=== PATIENT | female | born 1965 | race African-American/Black ===

== ENCOUNTER 2016-11-10 12:03 | Emergency (ER) | payer OTHER ==
[2016-11-10 12:11] VITALS: BP 158/92; PULSE 64; TEMP 98; BMI 34.0
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
[2016-11-10] MEDS ORDERED: KETOROLAC TROMETHAMINE 60 MG/2 ML VIAL IM ONE (12:37)
[2016-11-10] MEDS ORDERED: KETOROLAC TROMETHAMINE 60 MG/2 ML VIAL ONE (12:40)
== END 2016-11-10 13:48 | disposition home or self-care (01) ==
LOC: JERFT 12:03
PROC: 3E0233Z Introduction of Anti-inflammatory into Muscle, Percutaneous Approach (ICD-10-PCS; principal; 2016-11-10)
DX: S06.0X9A Concussion with loss of consciousness of unspecified duration, initial encounter (principal); M54.5 Low back pain; F17.210 Nicotine dependence, cigarettes, uncomplicated; E11.9 Type 2 diabetes mellitus without complications; I10 Essential (primary) hypertension; E78.00 Pure hypercholesterolemia, unspecified; K21.9 Gastro-esophageal reflux disease without esophagitis; I48.91 Unspecified atrial fibrillation
CPT/HCPCS: 70450-TC; 72131-TC; 99281-25

== ENCOUNTER 2018-03-19 04:00 | Emergency (ER) | payer OTHER ==
--- NOTE | 2018-03-19 04:53 | PDOC ---
History of Present Illness - General History Source: Patient Exam Limitations: No Limitations - History of Present Illness Initial Comments: 03/19/18 05:03 52 year old female with past medical history of diabetes, GERD, diverticulitis, colon resection presents to ED today complaining of right knee pain that has been worsening over two weeks. She states has had chronic bilateral knee pain but this pain is worse than before. She denies injury to the knee. She is able to bear weight with a cane. <Ailin Duron - Last Filed: 03/19/18 07:37> <Shimon Mcgill - Last Filed: 03/19/18 09:13> - General Stated Complaint: RIGHT KNEE PAIN Time Seen by Provider: 03/19/18 04:53 Past History - Past Medical History Anemia: Yes (HAS HAD BLOOD TRANSFUSION AFTER COLON RESECTION 2011) Asthma: No Cancer: No Cardiac Disorders: Yes (ATRIAL FIBRILLATION 2013) CVA: No COPD: No CHF: No Dementia: No Diabetes: Yes (NIDDM 2014) GI Disorders: Yes (GERD,DIVERTICULITIS-RESECTION) Disorders: No HTN: Yes Hypercholesterolemia: Yes Kidney Stones: Yes Liver Disease: No Seizures: No Thyroid Disease: No - Surgical History Abdominal Surgery: Yes (COLON RESECTION 12/2011, HERNIA) Appendectomy: No Cardiac Surgery: No Cholecystectomy: Yes Lung Surgery: No Neurologic Surgery: No Orthopedic Surgery: No - Immunization History Immunization Up to Date: Yes - Suicide/Smoking/Psychosocial Hx Smoking Status: Yes Smoking History: Current every day smoker Years of Tobacco Use: 0 Have you smoked in the past 12 months: Yes Number of Cigarettes Smoked Daily: 3 If you are a former smoker, when did you quit?: JANUARY 2014 Cigars Per Day: 0 'Breaking Loose' booklet given: 01/29/13 Hx Alcohol Use: Yes (RARE) Drug/Substance Use Hx: No Substance Use Type: None Hx Substance Use Treatment: No <Ailin Duron - Last Filed: 03/19/18 07:37> <Shimon Mcgill - Last Filed: 03/19/18 09:13> - Past Medical History Allergies/Adverse Reactions: Allergies Allergy/AdvReac Type Severity Reaction Status Date / Time No Known Drug Allergies Allergy Verified 11/10/16 12:11 Home Medications: Ambulatory Orders Metoprolol Tartrate [Lopressor -] 25 mg PO BID #0 tablet 02/15/14 Rivaroxaban [Xarelto -] 20 mg PO DAILY #0 tablet 02/15/14 Amlodipine Besylate [Norvasc -] 5 mg PO DAILY 09/15/14 Glipizide [Glipizide ER] 2.5 mg PO BID 09/15/14 Losartan/Hydrochlorothiazide [Losartan-Hctz 100-12.5 mg Tab] 1 each PO DAILY 12/25 metFORMIN HCL [Glucophage] 1,000 mg PO BID 09/15/14 Cyanocobalamin [Vitamin B12 -] 1,000 mcg PO DAILY 11/04/15 Ferrous Sulfate [Feosol] 325 mg PO DAILY 11/04/15 Review of Systems - Review of Systems Able to Perform ROS?: Yes Comments:: 03/19/18 05:05 General: denies fever, chills, generalized weakness. HEENT: denies sore throat, ear pain. Pulmonary: denies cough, shortness of breath. Heart: denies chest pain, palpitations, leg edema. Abdomen: denies abdominal pain, nausea, vomiting, diarrhea, constipation. Extremities: admits to right knee pain. Neuro: denies lightheadedness, numbness, tingling. 03/19/18 05:54 <Ailin Duron - Last Filed: 03/19/18 07:37> *Physical Exam - Physical Exam Comments: 03/19/18 05:24 General: awake, alert and oriented X3, no apparent distress HEENT: head is normocephalic, atraumatic. EOMI. PERRLA. Neck: supple without lymphadenopathy Heart: regular rhythm. no murmurs, rubs or gallops. Lungs: clear to auscultation bilaterally. no crackles, rhonchi or wheezing. no stridor. Abdomen: soft, nontender. normal bowel sounds. no rebound, guarding, masses. Extremities: right knee swollen, warm. posterior drawer test negative. anterior drawer test negative. MCL and LCL stabilty tested, no laxity noted. DSP 2+ bilaterally. pt is able to bear weight with a cane. Neurological: Alert. Oriented x3. CN 2-12 grossly intact. Moves all four extremities. <Ailin Duron - Last Filed: 03/19/18 07:37> - Vital Signs Last Vital Signs Temp Pulse Resp BP Pulse Ox 98.4 F 78 17 163/93 98 03/19/18 05:12 03/19/18 05:12 03/19/18 05:12 03/19/18 05:12 03/19/18 05:12 <Shimon Mcgill - Last Filed: 03/19/18 09:13> ED Treatment Course - LABORATORY CBC & Chemistry Diagram: 03/19/18 05:41 03/19/18 05:41 <Ailin Duron - Last Filed: 03/19/18 07:37> - LABORATORY CBC & Chemistry Diagram: 03/19/18 05:41 03/19/18 07:38 - ADDITIONAL ORDERS Additional order review: Laboratory Results 03/19/18 03/19/18 07:38 05:41 Sodium 139 Cancelled Potassium 3.4 L Cancelled Chloride 104 Cancelled Carbon Dioxide 26 Cancelled Anion Gap 9 Cancelled BUN 8 Cancelled Creatinine 0.4 L Cancelled Creat Clearance w eGFR > 60 Cancelled Random Glucose 134 H Cancelled Calcium 8.5 Cancelled Total Bilirubin 0.3 Cancelled AST 75 H Cancelled ALT 65 Cancelled Alkaline Phosphatase 132 H Cancelled Total Protein 8.0 Cancelled Albumin 3.8 Cancelled 03/19/18 05:41 RBC 4.93 MCV 73.2 L MCHC 33.7 RDW 14.9 MPV 11.0 Neutrophils % 42.4 L D Lymphocytes % 51.3 H D Monocytes % 4.8 Eosinophils % 1.0 D Basophils % 0.5 D - Medications Given in the ED: ED Medications Discontinued Medications Generic Name Dose Route Start Last Admin Trade Name Carson PRN Reason Stop Dose Admin Oxycodone/Acetaminophen 2 combo 03/19/18 05:21 03/19/18 05:33 Percocet 5/325 - PO 03/19/18 05:22 2 combo ONCE ONE Administration <Shimon Mcgill - Last Filed: 03/19/18 09:13> Medical Decision Making - Medical Decision Making 03/19/18 07:33 WBC not elevated. Pt signed out to Dr. Shimon Mcgill. <Ailin Duron - Last Filed: 03/19/18 07:37> *DC/Admit/Observation/Transfer <Ailin Duron Last Filed: 03/19/18 07:37> - Discharge Dispostion Decision to Admit order: No <Shimon Mcgill - Last Filed: 03/19/18 09:13> Diagnosis at time of Disposition: Knee pain Qualifiers: Chronicity: acute Laterality: right Qualified Code(s): M25.561 - Pain in right knee - Discharge Dispostion Disposition: HOME Condition at time of disposition: Good - Patient Instructions Additional Instructions: You were seen today for Right knee pain and weakness. You were found to have a small effusion and were provided with a knee immobilizer. Please wear the immobilizer at all times. Be sure to fully straighten you leg when applying the brace. For pain Tylenol (up to 1000mg every 6 hours) and Ibuprofen (up to 800mg every 8 hours) is recommended. Please follow up with your doctor regarding your knee MRI. Return to the Emergency Department if you pain or weakness worsens, you develop fevers, or notice redness/knee warmth.
--- NOTE | 2018-03-19 05:20 | PDOC ---
Attending Attestation - Resident Resident Name: Domi,Ailin - ED Attending Attestation I have performed the following: I have examined & evaluated the patient, The case was reviewed & discussed with the resident, I agree w/resident's findings & plan - HPI HPI: 03/19/18 07:01 The patient is a 52 year old female with a significant past medical history of diabetes, GERD, colon resection, and diverticulitis who presents to the ED for evaluation of right knee pain. The patient reports a 2 week history of worsening right knee pain with associated swelling. Pt notes this pain is different than her chronic bilateral knee pain. Of note, the patient reports taking Motrin 800mg with mild alleviation to her pain. Denies any trauma to knee. The patient denies fever, chills, nausea, and vomiting. - Physicial Exam PE: GENERAL: Awake, alert, and fully oriented, in no acute distress HEAD: No signs of trauma EYES: PERRLA, EOMI, sclera anicteric, conjunctiva clear ENT: Auricles normal inspection, hearing grossly normal, nares patent, oropharynx clear without exudates. Moist mucosa NECK: Normal ROM, supple, no lymphadenopathy, JVD, or masses LUNGS: Breath sounds equal, clear to auscultation bilaterally. No wheezes, and no crackles HEART: Regular rate and rhythm, normal S1 and S2, no murmurs, rubs or gallops ABDOMEN: Soft, nontender, normoactive bowel sounds. No guarding, no rebound. No masses EXTREMITIES: (+)Moderate edema of the right knee. Normal range of motion NEUROLOGICAL: Cranial nerves II through XII grossly intact. Normal speech. SKIN: Warm, Dry, normal turgor, no rashes or lesions noted. <Peggy Melgar - Last Filed: 03/19/18 07:03> - Medical Decision Making 03/20/18 05:30 Pt comes with right knee swelling and feeling that the knee joint is going to slip. The discomfort woke kept her form sleeping nad she came in to get it checked out because she is due to fly out to [facility] in 3 days and she doesn't want to have this pain and limited ROM of the knee. 03/20/18 05:32 Pt has lateral aspect of the right knee swelling and fluid in the joint. Pt will be signed out to the daytime ER docs for evaluation and tapping of joint as needed. XR knee is pending. <Claudette Berry - Last Filed: 03/20/18 05:34> Attestations - Attestations Documentation prepared by Peggy Melgar, acting as medical imaging director for Claudette Berry MD. <Peggy Melgar - Last Filed: 03/19/18 07:03>
[2018-03-19 05:23] VITALS: TEMP 98.4
[2018-03-19] MEDS ORDERED: ONDANSETRON *ODT* 4 MG TABLET SL PRN (05:31)
[2018-03-19] MEDS ORDERED: ONDANSETRON *ODT* 4 MG TABLET ONE (05:35)
[2018-03-19 07:00] LABS: BASO % 0.5 % (0-2.0); HEMATOCRIT 36.1 % (32.4-45.2); HEMOGLOBIN 12.1 GM/dL (10.7-15.3); LYMPH % 51.3 % (8-40); MCH 24.6 pg (25.7-33.7); MCHC 33.7 g/dl (32.0-36.0); MEAN CELL VOLUME 73.2 fl (80-96); MONO % 4.8 % (3.8-10.2); NEUT % 42.4 % (42.8-82.8); PLATELET COUNT 120 K/MM3 (134-434); RBC 4.93 M/mm3 (3.60-5.2); RDW 14.9 % (11.6-15.6)
[2018-03-19 08:29] LABS: ALBUMIN 3.8 g/dl (3.4-5.0); ANION GAP 9 (8-16); BLOOD UREA NITROGEN 8 mg/dL (7-18); CALCIUM 8.5 mg/dL (8.5-10.1); CHLORIDE 104 mmol/L (98-107); CO2 26 mmol/L (21-32); CREATININE 0.4 mg/dL (0.55-1.02); GLUCOSE,RANDOM 134 mg/dL (74-106); POTASSIUM 3.4 mmol/L (3.5-5.1); SGOT/AST 75 U/L (15-37); SGPT/ALT 65 U/L (12-78); SODIUM 139 mmol/L (136-145)
[2018-03-19 08:30] LABS: ALK PHOS 132 U/L (45-117); BILIRUBIN,TOTAL 0.3 mg/dL (0.2-1.0)
[2018-03-19 10:06] VITALS: BP 176/100; PULSE 74
[2018-03-19 10:12] LABS: ERYTHROCYTE SEDIMENTATION RATE 83 mm/hr (0-30)
== END 2018-03-19 10:00 | disposition home or self-care (01) ==
LOC: JER 04:00
DX: M25.561 Pain in right knee (principal); I48.91 Unspecified atrial fibrillation; Z79.01 Long term (current) use of anticoagulants; E11.9 Type 2 diabetes mellitus without complications; Z79.84 Long term (current) use of oral hypoglycemic drugs; K21.9 Gastro-esophageal reflux disease without esophagitis; Z87.19 Personal history of other diseases of the digestive system; Z86.2 Personal history of diseases of the blood and blood-forming organs and certain disorders involving the immune mechanism; F17.210 Nicotine dependence, cigarettes, uncomplicated
CPT/HCPCS: 36415; 73560-TC-RT-FY; 80053; 85025; 85651; 99282-25; Q0162

== ENCOUNTER 2018-11-05 01:34 | Emergency (ER) | payer OTHER ==
[2018-11-05 03:34] VITALS: BP 141/84; PULSE 91; TEMP 98.4; BMI 71.4
--- NOTE | 2018-11-05 03:41 | PDOC ---
History of Present Illness - General Chief Complaint: Pain Stated Complaint: SHINGLES/PAIN Time Seen by Provider: 11/05/18 03:41 History Source: Patient Exam Limitations: No Limitations - History of Present Illness Timing/Duration: intermittent Severity: moderate Past History - Travel Traveled outside of the country in the last 30 days: No Close contact w/someone who was outside of country & ill: No - Past Medical History Allergies/Adverse Reactions: Allergies Allergy/AdvReac Type Severity Reaction Status Date / Time No Known Drug Allergies Allergy Verified 11/10/16 12:11 Home Medications: Ambulatory Orders Amlodipine Besylate [Norvasc -] 5 mg PO DAILY 09/15/14 metFORMIN HCL [Glucophage] 1,000 mg PO BID 09/15/14 Atorvastatin Ca [Lipitor] 40 mg PO HS 11/05/18 Diphenhydramine HCl/Zinc Acet [Benadryl Itch Stopping Crm] 28.3 gm TP PRN PRN Oxycodone HCl/Acetaminophen [Percocet 5/325 -] 1 tab PO Q6H #16 tablet MDD 4 Anemia: Yes (HAS HAD BLOOD TRANSFUSION AFTER COLON RESECTION 2011) Asthma: No Cancer: No Cardiac Disorders: Yes (ATRIAL FIBRILLATION 2013) CVA: No COPD: No CHF: No Dementia: No Diabetes: Yes (NIDDM 2014) GI Disorders: Yes (GERD,DIVERTICULITIS-RESECTION) Disorders: No HTN: Yes Hypercholesterolemia: Yes Kidney Stones: Yes Liver Disease: No Seizures: No Thyroid Disease: No - Surgical History Abdominal Surgery: Yes (COLON RESECTION 12/2011, HERNIA) Appendectomy: No Cardiac Surgery: No Cholecystectomy: Yes Lung Surgery: No Neurologic Surgery: No Orthopedic Surgery: No - Immunization History Immunization Up to Date: Yes - Suicide/Smoking/Psychosocial Hx Smoking Status: Yes Smoking History: Never smoked Years of Tobacco Use: 0 Have you smoked in the past 12 months: Yes Number of Cigarettes Smoked Daily: 3 If you are a former smoker, when did you quit?: JANUARY 2014 Cigars Per Day: 0 'Breaking Loose' booklet given: 01/29/13 Hx Alcohol Use: Yes (RARE) Drug/Substance Use Hx: No Substance Use Type: None Hx Substance Use Treatment: No Review of Systems - Review of Systems Constitutional: No: Symptoms Reported, See HPI, Chills, Diaphoresis, Fever, Loss of Appetite, Malaise, Night Sweats, Weakness, Weight Stable, Unintentional Wgt. Loss, Unexplained wgt Loss, Other HEENTM: No: Symptoms Reported, See HPI, Eye Pain, Blurred Vision, Tearing, Recent change in vision, Double Vision, Cataracts, Ear Pain, Ocular Prothesis, Ear Discharge, Nose Pain, Nose Congestion, Tinnitus, Nose Bleeding, Hearing Loss , Throat Pain, Throat Swelling, Mouth Pain, Dental Problems, Difficulty Swallowing, Mouth Swelling, Other Respiratory: No: Symptoms reported, See HPI, Cough, Orthopnea, Shortness of Breath, SOB with Exertion, SOB at Rest, Stridor, Wheezing, Productive cough, Hemoptysis, Other Cardiac (ROS): No: Symptoms Reported, See HPI, Chest Pain, Edema, Irregular Heart Rate, Lightheadedness, Palpitations, Syncope, Chest Tightness, Other ABD/GI: No: Symptoms Reported, See HPI, Abdominal Distended, Abd. Pain w/ defecation, Blood Streaked Bowels, Constipated, Diarrhea, Difficulty Swallowing , Nausea, Poor Appetite, Poor Fluid Intake, Rectal Bleeding, Vomiting, Indigestion, Abdominal cramping, Tarry Stools, Other : No: Symptoms Reported, See HPI, Burning, Dysuria, Discharge, Frequency, Flank Pain, Hematuria, Incontinence, Pain, Urgency, Testicular Mass, Testicular Swelling, Lesions, Testicular Pain, Other Integumentary: Yes: Rash Neurological: Yes: Tingling. No: Symptoms reported, See HPI, Headache, Numbness , Paresthesia, Pre-Existing Deficit, Seizure, Tremors, Weakness, Unsteady Gait, Ataxia, Dizziness, Other Endocrine: No: Symptoms Reported, See HPI, Excessive Sweating, Flushing, Intolerance to Cold, Intolerance to Heat, Increased Hunger, Increased Thirst, Increased Urine, Unexplained Weight Gain, Unexplained Weight Loss, Change in Weight, Other Hematologic/Lymphatic: No: Symptoms Reported, See HPI, Anemia, Blood Clots, Easy Bleeding, Easy Bruising, Bleeding Diathesis, Lymph Node Abnormalities, Swollen Glands, Other *Physical Exam - Vital Signs Last Vital Signs Temp Pulse Resp BP Pulse Ox 98.4 F 91 H 18 141/84 11/05/18 03:10 11/05/18 03:10 11/05/18 03:10 11/05/18 03:10 - Physical Exam General Appearance: Yes: Nourished, Appropriately Dressed, Mild Distress HEENT: positive: EOMI, FELIX, Normal ENT Inspection, Normal Voice, Symmetrical, TMs Normal Neck: positive: Trachea midline, Supple Respiratory/Chest: positive: Lungs Clear, Respiratory Distress Cardiovascular: positive: Regular Rhythm, Regular Rate, S1, S2 Gastrointestinal/Abdominal: positive: Normal Bowel Sounds, Flat, Soft Musculoskeletal: positive: Normal Inspection Extremity: positive: Normal Capillary Refill, Normal Inspection, Normal Range of Motion, Pelvis Stable Integumentary: positive: Normal Color, Dry, Warm (Pt has shingles lesions in all stages of healing, mostly crusted over.) Neurologic: positive: 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 She has had bilat shingles x 3 weeks or more on her arms, as well as for a week or more on her scalp. She also has aphthous ulcers and she is asking for pain meds. Pt has no other complaints and she is eating and drinking. She has no other complaints and she is ready to gohome. She was advised to follow with her PMD. *DC/Admit/Observation/Transfer Diagnosis at time of Disposition: Post herpetic neuralgia, Aphthous ulcer - Discharge Dispostion Disposition: HOME Condition at time of disposition: Stable Decision to Admit order: No - Prescriptions Prescriptions: Oxycodone HCl/Acetaminophen [Percocet 5/325 -] 1 tab PO Q6H #16 tablet MDD 4 - Referrals Referrals: Olga Cho MD [Primary Care Provider] - - Patient Instructions Printed Discharge Instructions: Shingles, DI for Aphthous Ulcers (Canker Sores) , DI for Neuralgia - Post Discharge Activity
== END 2018-11-05 05:02 | disposition home or self-care (01) ==
LOC: JER 01:34
DX: B02.29 Other postherpetic nervous system involvement (principal); A69.0 Necrotizing ulcerative stomatitis
CPT/HCPCS: 99281-25

== ENCOUNTER 2019-03-09 12:27 | Emergency (ER) | payer OTHER ==
--- NOTE | 2019-03-09 12:54 | PDOC ---
Rapid Medical Evaluation Chief Complaint: Dysphagia Time Seen by Provider: 03/09/19 12:52 Medical Evaluation: Allergies Allergy/AdvReac Type Severity Reaction Status Date / Time No Known Drug Allergies Allergy Verified 03/09/19 12:52 03/09/19 12:52 I have performed a brief in-person evaluation of this patient. The patient presents with a chief complaint of: Pertinent physical exam findings:stable and in NAD, non-focal I have ordered the following:labs, ekg The patient will proceed to the ED for further evaluation.
--- NOTE | 2019-03-09 13:14 | PDOC ---
History of Present Illness - General Chief Complaint: Dysphagia Stated Complaint: SENT BY PCP/PAIN IN THROAT Time Seen by Provider: 03/09/19 12:52 - History of Present Illness Initial Comments: 03/09/19 13:13 Ms. Charles Candelaria is a 53 yo female w/ pmh of DM, GERD, HTN, HLD, Diverticulitis, Discoid SLE, who presents from clinic for evaluation of 5 day history of difficulty swallowing with raspy voice and swollen neck. Has had difficulty swallowing liquids and solids and says she is unable to lie flat as she cannot handle her saliva. Patient tried using a salt mouthwash for symptoms however reports this did not help. PCP requesting CT for further evaluation. The patient denies chest pain, shortness of breath, headache and dizziness. Denies fever, chills, nausea, vomit, diarrhea and constipation. Denies dysuria, frequency, urgency and hematuria. Past History - Past Medical History Allergies/Adverse Reactions: Allergies Allergy/AdvReac Type Severity Reaction Status Date / Time No Known Drug Allergies Allergy Verified 03/09/19 12:52 Home Medications: Ambulatory Orders Amlodipine Besylate [Norvasc -] 5 mg PO DAILY 09/15/14 metFORMIN HCL [Glucophage] 1,000 mg PO BID 09/15/14 Atorvastatin Ca [Lipitor] 40 mg PO HS 11/05/18 Anemia: Yes (HAS HAD BLOOD TRANSFUSION AFTER COLON RESECTION 2011) Asthma: No Cancer: No Cardiac Disorders: Yes (ATRIAL FIBRILLATION 2013) CVA: No COPD: No CHF: No Dementia: No Diabetes: Yes (NIDDM 2014) GI Disorders: Yes (GERD,DIVERTICULITIS-RESECTION) Disorders: No HTN: Yes Hypercholesterolemia: Yes Kidney Stones: Yes Liver Disease: No Seizures: No Thyroid Disease: No - Surgical History Abdominal Surgery: Yes (COLON RESECTION 12/2011, HERNIA) Appendectomy: No Cardiac Surgery: No Cholecystectomy: Yes Lung Surgery: No Neurologic Surgery: No Orthopedic Surgery: No - Immunization History Immunization Up to Date: Yes - Suicide/Smoking/Psychosocial Hx Smoking Status: Yes Smoking History: Current every day smoker Years of Tobacco Use: 0 Have you smoked in the past 12 months: Yes Number of Cigarettes Smoked Daily: 3 If you are a former smoker, when did you quit?: JANUARY 2014 Cigars Per Day: 0 Information on smoking cessation initiated: No 'Breaking Loose' booklet given: 01/29/13 Hx Alcohol Use: No Drug/Substance Use Hx: No Substance Use Type: None Hx Substance Use Treatment: No Review of Systems - Review of Systems Comments:: 03/09/19 13:14 GENERAL/CONSTITUTIONAL: No fever or chills. No weakness. HEAD, EYES, EARS, NOSE AND THROAT: +Swallowing symptoms w/ difficulty tolerating secretions and voice change as described. CARDIOVASCULAR: No chest pain or shortness of breath RESPIRATORY: No cough, wheezing, or hemoptysis. GASTROINTESTINAL: No nausea, vomiting, diarrhea or constipation. GENITOURINARY: No dysuria, frequency, or change in urination. MUSCULOSKELETAL: No joint or muscle swelling or pain. No neck or back pain. SKIN: No rash NEUROLOGIC: No headache, vertigo, loss of consciousness, or change in strength/ sensation. ENDOCRINE: No increased thirst. No abnormal weight change HEMATOLOGIC/LYMPHATIC: No anemia, easy bleeding, or history of blood clots. ALLERGIC/IMMUNOLOGIC: No hives or skin allergy. *Physical Exam - Vital Signs Last Vital Signs Temp Pulse Resp BP Pulse Ox 98.2 F 69 16 178/102 H 100 03/09/19 12:52 03/09/19 12:52 03/09/19 12:52 03/09/19 12:52 03/09/19 12:52 - Physical Exam Comments: 03/09/19 13:14 GENERAL: Awake, alert, and fully oriented, in no acute distress HEAD: No signs of trauma, normocephalic, atraumatic EYES: PERRLA, EOMI, sclera anicteric, conjunctiva clear ENT: Auricles normal inspection, hearing grossly normal, nares patent, oropharynx clear without exudates. Moist mucosa NECK: +L sided adenopathy noted. Normal ROM, supple, LUNGS: No distress, speaks full sentences, clear to auscultation bilaterally HEART: Regular rate and rhythm, normal S1 and S2, no murmurs, rubs or gallops, peripheral pulses normal and equal bilaterally. ABDOMEN: Soft, nontender, normoactive bowel sounds. No guarding, no rebound. No masses EXTREMITIES: Normal inspection, Normal range of motion, no edema. No clubbing or cyanosis. NEUROLOGICAL: Cranial nerves II through XII grossly intact. Normal speech, normal gait, no focal sensorimotor deficits SKIN: Warm, Dry, normal turgor, no rashes or lesions noted. ED Treatment Course - LABORATORY CBC & Chemistry Diagram: 03/09/19 13:43 03/09/19 13:43 Medical Decision Making - Medical Decision Making 03/09/19 18:17 Ms. Soto is a 53 yo female w/ pmh as described who presents for evaluation of dysphagia symptoms as described. Patient evaluated with labs as below (grossly wnl) and CT neck w/ contrast. CT significant for non-specific bilateral mildly enlarged lymph nodes as below. Patient discussed with GI for possible evaluation / scope who suggested possible ENT consult as well. Discussed admission with patient for further evaluation who reports she must AMA for family reasons and will return in AM for admission / further evaluation. PCP made aware. Strict return precautions discussed with patient who verbalized understanding and agreement. GI evaluated patient at bedside. Patient signed out AMA. Soft tissue neck CT with contrast Clinical information: evaluate for mass; dysphagia, possible lymphadenopathy multiplanar imaging was performed following the intravenous administration of nonionic contrast. No prior imaging studies are available at this facility for direct comparison. There is no definite CT evidence of a discrete mass lesion involving the endolarynx, subglottis, hypopharynx or oropharynx. Endoscopic evaluation is suggested given the provided clinical history. Several homogeneous mildly enlarged bilateral submandibular triangle lymph nodes are seen with a 1 cm maximum short axis diameter. Note is also made of a slightly prominent left periparotid lymph node inferiorly with a 0.7 cm short axis diameter. Several mildly prominent bilateral posterior triangle lymph nodes are seen with a 0.7 cm maximum short axis diameter. The prevertebral and retropharyngeal soft tissue planes appear unremarkable in thickness. The submandibular glands, parotid glands and parapharyngeal spaces appear symmetric. The carotid sheath structures demonstrate no obvious abnormality. No thyroid enlargement is noted. Small left apical subpleural bullae. Impression: No discrete mass lesion is seen as discussed above. Nonspecific bilateral mildly enlarged lymph nodes. Laboratory Results - last 24 hr 03/09/19 03/09/19 03/09/19 13:43 13:43 13:52 WBC 5.6 RBC 5.21 H Hgb 12.7 Hct 38.2 MCV 73.3 L MCH 24.4 L MCHC 33.3 RDW 15.8 H Plt Count 163 D MPV 10.0 Absolute Neuts (auto) 3.1 Neutrophils % 54.2 D Neutrophils % (Manual) 54.0 Band Neutrophils % 0.0 Lymphocytes % 38.8 D Lymphocytes % (Manual) 40.0 Monocytes % 5.7 Monocytes % (Manual) 3 L Eosinophils % 0.7 Eosinophils % (Manual) 0.0 Basophils % 0.6 Basophils % (Manual) 0.0 Myelocytes % (Man) 0 Promyelocytes % (Man) 0 Blast Cells % (Manual) 0 Nucleated RBC % 0 Metamyelocytes 0 Hypochromia 0 Platelet Estimate Normal Polychromasia 0 Poikilocytosis 0 Anisocytosis 0 Microcytosis 0 Macrocytosis 0 PT with INR 12.80 INR 1.08 PTT (Actin FS) 36.9 H Sodium 139 Potassium 3.8 Chloride 106 Carbon Dioxide 26 Anion Gap 7 L BUN 7.0 Creatinine 0.5 L Est GFR (CKD-EPI)AfAm 126.28 Est GFR (CKD-EPI)NonAf 108.96 Random Glucose 102 Calcium 9.2 Total Bilirubin 0.5 AST 56 H ALT 42 Alkaline Phosphatase 102 Total Protein 8.6 H Albumin 4.0 *DC/Admit/Observation/Transfer Diagnosis at time of Disposition: Dysphagia Qualifiers: Dysphagia type: unspecified Qualified Code(s): R13.10 - Dysphagia, unspecified - Discharge Dispostion Disposition: AGAINST MEDICAL ADVICE Condition at time of disposition: Good - Referrals Referrals: Olga Cho MD [Primary Care Provider] - - Patient Instructions Printed Discharge Instructions: DI for Esophageal Dysphagia Additional Instructions: You were evaluated today in the ER for your symptoms. We performed a neck CT which revealed non-specific bilateral mildly enlarged lymph nodes. We suggested admission for further evaluation and possible endoscopy however you elected to leave Against Medical Advice due to personal reasons. Please follow-up in morning as discussed when able. Return to ER IMMEDIATELY if any difficulty breathing or worsening of current symptoms. - Post Discharge Activity
[2019-03-09 13:56] LABS: BASO % 0.6 % (0-2.0); EOS % 0.7 % (0-4.5); HEMATOCRIT 38.2 % (32.4-45.2); HEMOGLOBIN 12.7 GM/dL (10.7-15.3); LYMPH % 38.8 % (8-40); MCH 24.4 pg (25.7-33.7); MCHC 33.3 g/dl (32.0-36.0); MEAN CELL VOLUME 73.3 fl (80-96); MONO % 5.7 % (3.8-10.2); NEUT % 54.2 % (42.8-82.8); PLATELET COUNT 163 K/MM3 (134-434); RBC 5.21 M/mm3 (3.60-5.2); RDW 15.8 % (11.6-15.6); WHITE BLOOD COUNT 5.6 K/mm3 (4.0-10.0)
[2019-03-09 14:29] LABS: BILIRUBIN,TOTAL 0.5 mg/dL (0.2-1); CALCIUM 9.2 mg/dL (8.5-10.1); CREATININE 0.5 mg/dL (0.55-1.3); POTASSIUM 3.8 mmol/L (3.5-5.1); TOT PROT 8.6 g/dl (6.4-8.2)
[2019-03-09 14:42] LABS: ANISOCYTOSIS 0; MACROCYTOSIS 0; PLATELET ESTIMATE NORMAL
[2019-03-09] MEDS ORDERED: SODIUM CHLORIDE 1,000 ML IV STA (14:49)
--- NOTE | 2019-03-09 14:55 | PDOC ---
Documentation entered by Radha Lopez SCRIBE, acting as scribe for Eda Marvin MD. Eda Marvin MD: This documentation has been prepared by the Jessica dupree Mackenzie, SCRIBE, under my direction and personally reviewed by me in its entirety. I confirm that the documentation accurately reflects all work , treatment, procedures, and medical decision making performed by me. Attending Attestation - Resident Resident Name: Cholo Mcmahon - ED Attending Attestation I have performed the following: I have examined & evaluated the patient, The case was reviewed & discussed with the resident, I agree w/resident's findings & plan, Exceptions are as noted - HPI HPI: The patient is a 53 year old female, with a significant PMH of GERD, HTN, HLD, DM, Discoid SLE, and Diverticulitis who presents to the emergency department from a clinic with difficulty swallowing and left sided neck swelling for the past 5 days. Patient states she cannot swallow food or liquid without experiencing pain in the back of her throat. Patient notes symptoms are accompanied by a wax taste in the back of her mouth. Patient states that while going on a walk yesterday she felt a burning sensation in the back of her throat and felt short of breath. Patient also notes while laying down she has a cough due to her inability to swallow her saliva. Patient admits recent unexplained weight gain. The patient denies chest pain, headache and dizziness. Denies fever, chills, nausea, vomiting, diarrhea and constipation. Denies dysuria, frequency, urgency and hematuria. Allergies: NKDA Past surgical history: As per resident note Social history: None reported PCP: Dr. Cho 03/09/19 14:40 - Physicial Exam PE: GENERAL: Awake, alert, and fully oriented, in no acute distress HEAD: No signs of trauma EYES: PERRLA, EOMI, sclera anicteric, conjunctiva clear ENT: Auricles normal inspection, hearing grossly normal, nares patent, oropharynx clear without exudates. Moist mucosa NECK: Normal ROM, supple, +L anterior cervical lymphadenopathy. No JVD or masses. +Slight asymmetry of neck, slightly enlarged on L side, but no induration, fluctuance, warmth, or erythema. Mild thyromegaly LUNGS: Breath sounds equal, clear to auscultation bilaterally. No wheezes, and no crackles HEART: Regular rate and rhythm, normal S1 and S2, no murmurs, rubs or gallops ABDOMEN: Soft, nontender, normoactive bowel sounds. No guarding, no rebound. No masses EXTREMITIES: Normal range of motion, no edema. No clubbing or cyanosis. No cords, erythema, or tenderness NEUROLOGICAL: Cranial nerves II through XII grossly intact. Normal speech, normal gait. Motor and sensation intact SKIN: Warm, Dry, normal turgor, no rashes or lesions noted. - Medical Decision Making Pt noted to be expectorating intermittently. Slight asymmetry of the neck. Will obtain CT to r/o neck mass.
[2019-03-09 14:56] LABS: INR 1.08 (0.83-1.09); PROTHROMBIN TIME (PATIENT) 12.8 SEC (9.7-13.0)
[2019-03-09 14:59] LABS: ACTIVATED PTT 36.9 SECONDS (25.2-36.5)
[2019-03-09 17:11] VITALS: BP 185/89; PULSE 53; TEMP 98.5
--- NOTE | 2019-03-09 18:48 | CON.GI ---
Consult Consult Specialty:: GI: for Dr. Zhang Referred by:: Dr. Olga Cho Reason for Consultation:: Dysphagia / Throat pain - History of Present Illness Chief Complaint: My throat hurts History of Present Illness: 53F coming to the ER for evaluation of throat pain. She states that the pain began about 4 days ago, gradually got worse and inhibiting her ability to swallow liquids, her saliva or food. She denies similar episodes in the past. This did not start after ingestion of a meal. CT neck revealed enlarged lymphnodes. She states that it is hard to say if she had fevers/chills because she is going through menopause. She denies prednisone use but believes that she is on "another pill for her discoid lupus". She denies unintentional weight loss. There is no family history of GI malignancy. She believes that Dr. Ennis performed her last colonoscopy within the last 5 years. - History Source History Provided By: Patient - Past Medical History Cardio/Vascular: Yes: HTN, Hyperlipdemia Gastrointestinal: Yes: Diverticulitis, Diverticulosis Endocrine: Yes: Diabetes Mellitus - Past Surgical History Additional Surgical History: x 2, laparoscopic cholecystectomy, partial hysterectomy, colon resection following diverticulitis - Alcohol/Substance Use Hx Alcohol Use: No History of Substance Use: reports: None - Smoking History Smoking history: Current every day smoker Have you smoked in the past 12 months: Yes Aproximately how many cigarettes per day: 3 If you are a former smoker, when did you quit?: JANUARY 2014 - Social History Usual Living Arrangement: Alone ADL: Independent Place of : [facility] History of Recent Travel: No Home Medications - Allergies Allergies/Adverse Reactions: Allergies Allergy/AdvReac Type Severity Reaction Status Date / Time No Known Drug Allergies Allergy Verified 03/09/19 12:52 - Home Medications Home Medications: Ambulatory Orders Amlodipine Besylate [Norvasc -] 5 mg PO DAILY 09/15/14 metFORMIN HCL [Glucophage] 1,000 mg PO BID 09/15/14 Atorvastatin Ca [Lipitor] 40 mg PO HS 11/05/18 Family Disease History - Family Disease History Family Disease History: Other: Father (: 62), Mother (: cirrhosis), Brother (5: 1 alive, 2 from asthma, 1 from diabetic complications, 1 murdered), Sister (2, healthy) Review of Systems - Review of Systems Constitutional: denies: Fever, Unintentional Wgt. Loss, Weakness HENT: reports: Difficult Swallowing, Throat Pain Cardiovascular: denies: Chest Pain Respiratory: denies: Cough Gastrointestinal: denies: Abdominal Pain, Constipation, Diarrhea, Melena, Rectal Bleeding, Vomiting, Vomiting Blood Physical Exam-GI Vital Signs: Vital Signs Temperature 98.5 F 03/09/19 17:10 Pulse Rate 53 L 03/09/19 17:10 Respiratory Rate 16 03/09/19 12:52 Blood Pressure 185/89 H 03/09/19 17:10 O2 Sat by Pulse Oximetry (%) 99 03/09/19 17:10 Constitutional: Yes: Calm Eyes: No: Sclera Icterus HENT: Yes: Other (No oropharyngeal thrush) Cardiovascular: Yes: Regular Rate and Rhythm. No: Murmur Respiratory: Yes: CTA Bilaterally Gastrointestinal Inspection: Yes: Scars (deep midline vertical abdominopelvic surgical scar) ...Auscultate: Yes: Normoactive Bowel Sounds ...Palpate: Yes: Soft. No: Splenomegaly, Tenderness Edema: No (No LE edema) Neurological: Yes: Alert Labs: CBC, BMP 03/09/19 13:43 03/09/19 13:43 INR, PTT INR 1.08 (0.83-1.09) 03/09/19 13:52 Imaging - Results Cat Scan: Report Reviewed Problem List - Problems (1) Throat pain in adult Assessment/Plan: With associated dysphagia to solids / liquids: Advise: Admission as she cannot eat. She is sitting spitting into a bag but states that she was able to drink liquids prior to her ER evaluation. ENT evaluation, particularly in setting of lymphadenopathy noted on neck CT and complaints of throat pain If ENT evaluation unremarkable, Endoscopic evaluation to exclude upper esophageal pathology Obtain more information regarding current medicaion regimen for her discoid Lupus. Ms. Hogue, however, states that she will likely sign out AMA Discussed with ER resident Code(s): R07.0 - PAIN IN THROAT
--- NOTE | 2019-03-12 00:35 | EKG ---
Test Reason : Blood Pressure : / mmHG Vent. Rate : 065 BPM Atrial Rate : 065 BPM P-R Int : 194 ms QRS Dur : 114 ms QT Int : 474 ms P-R-T Axes : 022 -44 024 degrees QTc Int : 492 ms NORMAL SINUS RHYTHM POSSIBLE LEFT ATRIAL ENLARGEMENT LEFT AXIS DEVIATION INCOMPLETE RIGHT BUNDLE BRANCH BLOCK NONSPECIFIC T WAVE ABNORMALITY PROLONGED QT ABNORMAL ECG Confirmed by MD Sorenson Edward ([id number]) on 03/12/2019 12:35:19 AM Referred By: Confirmed By:Adonis Sorenson MD
== END 2019-03-09 18:46 | disposition left against medical advice (07) ==
LOC: JER 12:27
PROC: 3E0337Z Introduction of Electrolytic and Water Balance Substance into Peripheral Vein, Percutaneous Approach (ICD-10-PCS; principal; 2019-03-09)
DX: R13.10 Dysphagia, unspecified (principal); R59.0 Localized enlarged lymph nodes; I10 Essential (primary) hypertension; E11.9 Type 2 diabetes mellitus without complications; Z79.84 Long term (current) use of oral hypoglycemic drugs; E78.5 Hyperlipidemia, unspecified; K21.9 Gastro-esophageal reflux disease without esophagitis; K57.32 Diverticulitis of large intestine without perforation or abscess without bleeding; L93.0 Discoid lupus erythematosus
CPT/HCPCS: 36415; 70491-TC; 80053; 85025; 85610; 85730; 93005; 93010; 96360; 99282-25; J7030

== ENCOUNTER 2020-05-16 04:54 | Emergency (ER) | payer OTHER ==
--- NOTE | 2020-05-16 05:09 | PDOC ---
History of Present Illness - General Stated Complaint: PAIN,NAUSEA Time Seen by Provider: 05/16/20 05:09 - History of Present Illness Initial Comments: 05/16/20 06:00 54 yo F PMH discoid lupus, HTN, HLD, diverticulitis s/p colon resection, diverticulosis, x 2, laparoscopic cholecystectomy, partial hysterectomy, 30 year smoking history presented to the ED with lower abdominal pain for 2 days. Pain located on suprapubic region associated with increased frequency, foul rotten odor and nausea. Denies dysuria, hematuria, chest pain, fever, Vomiting, unilat leg swelling. Patient also complaint of right flank pain. Last time she had this pain was the acute episode of diverticulitis. Patient denies hx of STI, or current sexual activity, denies hx of kidney stone. PMH: see above PSH: see above SS: smoke, no alcohol, no drug Allergy: shellfish PCP : [facility]. Med: on med for lupus. ROS GENERAL/CONSTITUTIONAL: No fever ,+chills. No weakness. HEAD, EYES, EARS, NOSE AND THROAT: No change in vision. No ear pain or discharge. No sore throat. CARDIOVASCULAR: No chest pain or shortness of breath RESPIRATORY: No cough, wheezing, or hemoptysis. GASTROINTESTINAL: + nausea, no vomiting, diarrhea or constipation. GENITOURINARY: No dysuria, +frequency, or change in urination. MUSCULOSKELETAL: No joint or muscle swelling or pain. No neck or back pain. SKIN: No rash NEUROLOGIC: No headache, vertigo, loss of consciousness, or change in stre ngth/sensation. ENDOCRINE: No increased thirst. No abnormal weight change HEMATOLOGIC/LYMPHATIC: No anemia, easy bleeding, or history of blood clots. ALLERGIC/IMMUNOLOGIC: No hives or skin allergy. PE HTN GENERAL: Awake, alert, and fully oriented, in no acute distress HEAD: No signs of trauma, normocephalic, atraumatic, discoid lupus lesion on the head. EYES: PERRLA, EOMI, sclera anicteric, conjunctiva clear ENT: Auricles normal inspection, hearing grossly normal, nares patent, oropharynx clear without exudates. Moist mucosa, lip has old, and new scabs, minimal bleeding. NECK: Normal ROM, supple, no lymphadenopathy, JVD, or masses LUNGS: No distress, speaks full sentences, clear to auscultation bilaterally HEART: Regular rate and rhythm, normal S1 and S2, no murmurs, rubs or gallops, peripheral pulses normal and equal bilaterally. ABDOMEN: Soft, normoactive bowel sounds. No guarding, no rebound. No masses,, + right CVA tenderness. +Suprapubic tenderness. EXTREMITIES : Normal inspection, Normal range of motion, no edema. No clubbing or cyanosis. NEUROLOGICAL: Cranial nerves II through XII grossly intact. Normal speech, normal gait, no focal sensorimotor deficits SKIN: Warm, Dry, normal turgor, discoid lupus lesions noted throughout body. 05/16/20 06:54 Past History - Medical History Allergies/Adverse Reactions: Allergies Allergy/AdvReac Type Severity Reaction Status Date / Time No Known Drug Allergies Allergy Verified 02/23/20 23:17 shellfish derived Allergy Verified 02/26/20 14:46 Home Medications: Ambulatory Orders Amlodipine Besylate [Norvasc -] 5 mg PO DAILY 09/15/14 metFORMIN HCL [Glucophage] 1,000 mg PO BID 09/15/14 Atorvastatin Ca [Lipitor] 40 mg PO HS 11/05/18 Acetaminophen [Tylenol .Regular Strength -] 650 mg PO Q6H PRN tablet 02/26/20 Anemia: Yes (HAS HAD BLOOD TRANSFUSION AFTER COLON RESECTION 2011) Asthma: No Cancer: No Cardiac Disorders: Yes (ATRIAL FIBRILLATION 2013) CVA: No COPD: No CHF: No Dementia: No Diabetes: Yes (NIDDM 2014) GI Disorders: Yes (GERD,DIVERTICULITIS-RESECTION) Disorders: No HTN: Yes Hypercholesterolemia: Yes Kidney Stones: Yes Liver Disease: No Seizures: No Thyroid Disease: No - Surgical History Abdominal Surgery: Yes (COLON RESECTION 12/2011, HERNIA) Appendectomy: No Cardiac Surgery: No Cholecystectomy: Yes Lung Surgery: No Neurologic Surgery: No Orthopedic Surgery: No - Immunization History Immunization Up to Date: Yes - Psycho-Social/Smoking History Smoking Status: Yes Smoking History: Current every day smoker Years of Tobacco Use: 0 Have you smoked in the past 12 months: Yes Number of Cigarettes Smoked Daily: 5 If you are a former smoker, when did you quit?: JANUARY 2014 Cigars Per Day: 0 'Breaking Loose' booklet given: 02/24/20 ED Treatment Course - LABORATORY CBC & Chemistry Diagram: 05/16/20 05:42 05/16/20 05:42 Medical Decision Making - Medical Decision Making 05/16/20 06:07 Concerning for UTI vs pyelo vs kidney stones. -CBC, CMP, UA/UC, -CT abdomen/pelvis with contrast. -fluid, tylenol, reglan. -EKG: normal sinus rhthym, vent rate 83, QTc 484 , no ST elevation, not concerning for STEMI. 05/16/20 06:09 -Pelvic exam showed normal physiologic discharge, no blood. -bimanual exam did elicit pain, sent GC/CL urine. Discharge - Discharge Information Problems reviewed: Yes Clinical Impression/Diagnosis: Abdominal pain, Flank pain, Dysuria Condition: Stable Disposition: HOME - Follow up/Referral Referrals: Olga Cho MD [Primary Care Provider] - - Patient Discharge Instructions Patient Printed Discharge Instructions: DI for Abdominal Pain-Adult Additional Instructions: Please return to the emergency department immediately should you feel worse in any way or have any of the following symptoms: increasing or different abdominal pain, persistent vomiting, fevers or shaking chills. Please return to the emergency department for a recheck in 8-12 hours if the pain is persistent or worse so we can re-evaluate you and ensure that you are not developing a problem that would require surgery or hospitalization. - Post Discharge Activity
[2020-05-16 05:19] VITALS: BP 165/92; PULSE 97; TEMP 98.2; BMI 31.3
[2020-05-16] MEDS ORDERED: ACETAMINOPHEN 1000 MG/100 ML VIAL (NON FORMULARY) IVPB ONE (05:32)
[2020-05-16] MEDS ORDERED: SODIUM CHLORIDE 1,000 ML IV STA (05:32)
[2020-05-16] MEDS ORDERED: ACETAMINOPHEN INJECTION 100 ML IVPB ONE (05:44)
[2020-05-16 06:13] LABS: BASO % 0.3 % (0-2.0); EOS % 0.8 % (0-4.5); HEMATOCRIT 39.7 % (32.4-45.2); HEMOGLOBIN 13.3 GM/dL (10.7-15.3); LYMPH % 34.7 % (8-40); MCH 24.8 pg (25.7-33.7); MCHC 33.5 g/dl (32.0-36.0); MEAN CELL VOLUME 73.9 fl (80-96); MEAN PLT VOLUME 10.8 fl (7.5-11.1); NEUT % 58.2 % (42.8-82.8); PLATELET COUNT 138 K/MM3 (134-434); RBC 5.37 M/mm3 (3.60-5.2); RDW 14.1 % (11.6-15.6); WHITE BLOOD COUNT 6.4 K/mm3 (4.0-10.0)
--- NOTE | 2020-05-16 06:14 | PDOC ---
Attending Attestation - Resident Resident Name: Ludwin Corbin - ED Attending Attestation I have performed the following: I have examined & evaluated the patient, The case was reviewed & discussed with the resident, I agree w/resident's findings & plan, Exceptions are as noted - HPI HPI: 05/16/20 06:13 54 F with h/o discoid lupus, HTN, diverticulitis s/p colon resection, presenting to ED with abdominal pain x 2 days. Pt states pain is suprapubic, radiating to R flank. Pt endorses dysuria with frequency and foul smelling urine. Denies F/C. - Physicial Exam PE: 05/16/20 06:14 See resident exam - Medical Decision Making 05/16/20 06:14 54 F with abdominal pain. - Labs, UA - CTAP Labs with mild transaminitis CT shows fatty liver, no acute process Pt is well appearing, with normal vitals. Clinically stable for DC at this time. I discussed the physical exam findings, ancillary test results and final diagnoses with the patient. I answered all of the patient's questions. The patient was satisfied with the care received and felt comfortable with the discharge plan and treatment plan. The patient agrees to follow up with the primary care physician within 24-72 hours. Discharge - Discharge Information Problems reviewed: Yes Clinical Impression/Diagnosis: Abdominal pain, Flank pain, Dysuria Condition: Stable Disposition: HOME - Follow up/Referral Referrals: Olga Cho MD [Primary Care Provider] - - Patient Discharge Instructions Patient Printed Discharge Instructions: DI for Abdominal Pain-Adult Additional Instructions: Please return to the emergency department immediately should you feel worse in any way or have any of the following symptoms: increasing or different abdominal pain, persistent vomiting, fevers or shaking chills. Please return to the emergency department for a recheck in 8-12 hours if the pain is persistent or worse so we can re-evaluate you and ensure that you are not developing a problem that would require surgery or hospitalization. - Post Discharge Activity
[2020-05-16] MEDS ORDERED: ONDANSETRON 4 MG/2 ML VIAL IVPUSH ONE (06:26)
[2020-05-16 06:31] LABS: ALBUMIN 4.2 g/dl (3.4-5.0); BILIRUBIN,TOTAL 0.5 mg/dL (0.2-1); BLOOD UREA NITROGEN 7.9 mg/dL (7-18); CALCIUM 8.9 mg/dL (8.5-10.1); CREATININE 0.5 mg/dL (0.55-1.3); POTASSIUM 3.4 mmol/L (3.5-5.1); TOT PROT 8.9 g/dl (6.4-8.2)
[2020-05-16 07:18] LABS: EPI CELLS 2 /uL (0-25.1); HYALINE CASTS 0 /uL (0-3.1); URINE APPEARANCE CLEAR; URINE BACTERIA 14 /uL (0-1359); URINE BILIRUBIN NEGATIVE (NEGATIVE); URINE COLOR YELLOW; URINE GLUCOSE (UA) NEGATIVE (NEGATIVE); URINE KETONE NEGATIVE (NEGATIVE); URINE LEUK ESTERASE NEGATIVE (NEGATIVE); URINE NITRITE NEGATIVE (NEGATIVE); URINE PROTEIN 2+ (NEGATIVE); URINE RBC 4 /uL (0-23.9); URINE UROBILINOGEN 0.2 mg/dL (0.2-1.0); URINE WBC 1 /uL (0-25.8)
--- NOTE | 2020-05-16 08:20 | PDOC ---
*Physical Exam - Vital Signs Last Vital Signs Temp Pulse Resp BP Pulse Ox 98.2 F 97 H 17 165/92 99 05/16/20 05:12 05/16/20 05:12 05/16/20 05:12 05/16/20 05:12 05/16/20 05:12 ED Treatment Course - LABORATORY CBC & Chemistry Diagram: 05/16/20 05:42 05/16/20 05:42 - ADDITIONAL ORDERS Additional order review: Laboratory Results 05/16/20 05/16/20 05/16/20 05:50 05:42 05:42 Sodium 137 Potassium 3.4 L Chloride 99 Carbon Dioxide 30 Anion Gap 8 BUN 7.9 Creatinine 0.5 L Est GFR (CKD-EPI)AfAm 125.40 Est GFR (CKD-EPI)NonAf 108.19 POC Glucometer 178 Random Glucose 152 H Calcium 8.9 Total Bilirubin 0.5 AST 94 H ALT 78 H Alkaline Phosphatase 101 Total Protein 8.9 H Albumin 4.2 Urine Color Yellow Urine Appearance Clear Urine pH 7.0 D Ur Specific [place] 1.006 L Urine Protein 2+ H Urine Glucose (UA) Negative Urine Ketones Negative Urine Blood Negative Urine Nitrite Negative Urine Bilirubin Negative Urine Urobilinogen 0.2 Ur Leukocyte Esterase Negative Urine WBC (Auto) 1 Urine RBC (Auto) 4 Urine Casts (Auto) 0 U Epithel Cells (Auto) 2 Urine Bacteria (Auto) 14 05/16/20 05/16/20 05:50 05:42 RBC 5.37 H MCV 73.9 L MCHC 33.5 RDW 14.1 MPV 10.8 Neutrophils % 58.2 D Lymphocytes % 34.7 D Monocytes % 6.0 Eosinophils % 0.8 Basophils % 0.3 POC Glucometer 178 - Medications Given in the ED: ED Medications Discontinued Medications Generic Name Dose Route Start Last Admin Trade Name Freq PRN Reason Stop Dose Admin Acetaminophen 1,000 mg 05/16/20 05:32 05/16/20 06:00 Ofirmev Injection - IVPB 05/16/20 05:33 1,000 mg ONCE ONE Administration Sodium Chloride 1,000 mls @ 1,000 mls/hr 05/16/20 05:32 05/16/20 06:00 Normal Saline - IV 05/16/20 06:31 1,000 mls/hr ASDIR STA Administration Ondansetron HCl 4 mg 05/16/20 06:26 05/16/20 06:50 Zofran Injection IVPUSH 05/16/20 06:27 4 mg ONCE ONE Administration Medical Decision Making - Medical Decision Making 05/16/20 08:18 Patient has had sigmoid surgery. No bowel obstruction or inflammation. Negative for diverticulitis or colitis. Normal appendix. No free intraperitoneal air or free fluid. Liver is slightly prominent and may be fatty. Normal spleen. Normal pancreas. Normal adrenal glands. Nonobstructing left upper pole renal stone. No acute renal abnormalities or urinary tract obstruction. Left kidney appears elongated in its craniocaudal dimension. Congenital? osseous structures intact UA unremarkable. GC and trichomonas pending pt on reassesment feeling well enough to go home. no tenderness on repeat abdo corey exam 05/16/20 08:18 Discharge - Discharge Information Problems reviewed: Yes Clinical Impression/Diagnosis: Abdominal pain Condition: Stable Disposition: HOME - Follow up/Referral Referrals: Olga Cho MD [Primary Care Provider] - - Patient Discharge Instructions Patient Printed Discharge Instructions: DI for Abdominal Pain-Adult Additional Instructions: Please return to the emergency department immediately should you feel worse in any way or have any of the following symptoms: increasing or different abdominal pain, persistent vomiting, fevers or shaking chills. Please return to the emergency department for a recheck in 8-12 hours if the pain is persistent or worse so we can re-evaluate you and ensure that you are not developing a problem that would require surgery or hospitalization. - Post Discharge Activity
--- NOTE | 2020-05-16 10:44 | EKG ---
Test Reason : Blood Pressure : / mmHG Vent. Rate : 083 BPM Atrial Rate : 083 BPM P-R Int : 182 ms QRS Dur : 112 ms QT Int : 412 ms P-R-T Axes : 031 -58 070 degrees QTc Int : 484 ms NORMAL SINUS RHYTHM POSSIBLE LEFT ATRIAL ENLARGEMENT INCOMPLETE RIGHT BUNDLE BRANCH BLOCK LEFT ANTERIOR FASCICULAR BLOCK NONSPECIFIC T WAVE ABNORMALITY PROLONGED QT ABNORMAL ECG WHEN COMPARED WITH ECG OF 23-FEB-2020 23:55, MD INTERVAL HAS DECREASED INCOMPLETE RIGHT BUNDLE BRANCH BLOCK IS NOW PRESENT BORDERLINE CRITERIA FOR ANTERIOR INFARCT ARE NO LONGER PRESENT Confirmed by AKIRA PENA MD ([id number]) on 05/16/2020 10:44:24 AM Referred By: Confirmed By:AKIRA PENA MD
== END 2020-05-16 08:31 | disposition home or self-care (01) ==
LOC: JER 04:54
PROC: 3E0333Z Introduction of Anti-inflammatory into Peripheral Vein, Percutaneous Approach (ICD-10-PCS; principal; 2020-05-16)
PROC: 3E033GC Introduction of Other Therapeutic Substance into Peripheral Vein, Percutaneous Approach (ICD-10-PCS; 2020-05-16)
PROC: 3E0337Z Introduction of Electrolytic and Water Balance Substance into Peripheral Vein, Percutaneous Approach (ICD-10-PCS; 2020-05-16)
DX: R10.9 Unspecified abdominal pain (principal)
CPT/HCPCS: 36415; 74177-TC; 80053; 81003; 82962; 85025; 87086; 87491; 87591; 87661; 93005; 93010; 99285-25; J0131

== ENCOUNTER 2020-08-03 19:10 | Emergency (ER) | payer OTHER ==
[2020-08-03 19:16] VITALS: TEMP 98
[2020-08-03] MEDS ORDERED: LIDOCAINE 5% TOPICAL PATCH TP ONE (20:05)
[2020-08-03] MEDS ORDERED: KETOROLAC TROMETHAMINE 60 MG/2 ML VIAL IM ONE (20:05)
[2020-08-03] MEDS ORDERED: LIDOCAINE 5% TOPICAL PATCH ONE (20:12)
[2020-08-03] MEDS ORDERED: KETOROLAC TROMETHAMINE 30 MG/1 ML VIAL ONE (20:12)
[2020-08-03 22:33] VITALS: BP 122/76; PULSE 84
[2020-08-04] MEDS ORDERED: LIDOCAINE PATCH REMOVAL MC SCH (08:00)
== END 2020-08-03 22:33 | disposition home or self-care (01) ==
LOC: JER 19:10
PROC: 3E0233Z Introduction of Anti-inflammatory into Muscle, Percutaneous Approach (ICD-10-PCS; principal; 2020-08-03)
DX: M54.42 Lumbago with sciatica, left side (principal); S09.90XA Unspecified injury of head, initial encounter
CPT/HCPCS: 70450-TC; 99284-25

== ENCOUNTER 2020-09-04 21:58 | Inpatient (IN) | payer OTHER ==
[2020-09-04 23:17] LABS: BASO % 0.2 % (0-2.0); EOS % 0.4 % (0-4.5); HEMATOCRIT 39.3 % (32.4-45.2); HEMOGLOBIN 12.9 GM/dL (10.7-15.3); MCH 24.8 pg (25.7-33.7); MCHC 32.8 g/dl (32.0-36.0); MEAN CELL VOLUME 75.6 fl (80-96); MEAN PLT VOLUME 10.3 fl (7.5-11.1); MONO % 6.2 % (3.8-10.2); NEUT % 47.2 % (42.8-82.8); PLATELET COUNT 127 K/MM3 (134-434); RBC 5.19 M/mm3 (3.60-5.2); RDW 14.6 % (11.6-15.6); WHITE BLOOD COUNT 5.3 K/mm3 (4.0-10.0)
[2020-09-04 23:40] LABS: CALCIUM 9.2 mg/dL (8.5-10.1)
[2020-09-04 23:41] LABS: ALBUMIN 3.8 g/dl (3.4-5.0); BLOOD UREA NITROGEN 7.8 mg/dL (7-18)
[2020-09-04 23:45] LABS: CREATININE 0.6 mg/dL (0.55-1.3)
[2020-09-04 23:46] LABS: BILIRUBIN,TOTAL 0.2 mg/dL (0.2-1)
[2020-09-04 23:47] LABS: TOT PROT 8.3 g/dl (6.4-8.2)
[2020-09-05] MEDS ORDERED: MAGNESIUM SULF 50% (8.12 MEQ/2 ML-1 GM VIAL) IVPB ONE (00:19)
[2020-09-05] MEDS ORDERED: POTASSIUM CHLORIDE TABS 20 MEQ TABLET.ER (FP) PO ONE ×2 (00:19→00:24)
[2020-09-05] MEDS ORDERED: MAGNESIUM SULFATE IN WATER 2 GM/50 ML IVPB IVPB ONE (00:25)
[2020-09-05] MEDS ORDERED: ALBUTEROL SO4 2.5/IPRATROPIUM 0.5 INH SOL 3 ML VIAL.NEB. NEB PRN (04:55)
[2020-09-05] MEDS ORDERED: ENOXAPARIN NA (PORCINE) 100 MG/1 ML DISP.SYRIN SQ SCH (05:00)
[2020-09-05 05:30] LABS: INR 1.09 (0.83-1.09); PROTHROMBIN TIME (PATIENT) 13.1 SEC (9.7-13.0)
[2020-09-05] MEDS ORDERED: ENOXAPARIN NA (PORCINE) 100 MG/1 ML DISP.SYRIN SQ ONE (05:36)
[2020-09-05] MEDS ORDERED: ONDANSETRON 4 MG/2 ML VIAL IVPUSH PRN (06:45)
[2020-09-05 06:55] LABS: CALCIUM 8.6 mg/dL (8.5-10.1)
[2020-09-05 06:56] LABS: ALBUMIN 3.7 g/dl (3.4-5.0); BLOOD UREA NITROGEN 6.5 mg/dL (7-18); MAGNESIUM 1.4 mg/dL (1.8-2.4)
[2020-09-05 06:59] LABS: CREATININE 0.5 mg/dL (0.55-1.3)
[2020-09-05 07:00] LABS: BILIRUBIN,TOTAL 0.6 mg/dL (0.2-1)
[2020-09-05] MEDS ORDERED: INSULIN SLIDING SCALE (NOVOLOG) 1 VIAL SQ SCH (07:00)
[2020-09-05 07:02] LABS: TOT PROT 7.9 g/dl (6.4-8.2)
[2020-09-05 08:00] LABS: BASO % 0.4 % (0-2.0); HEMATOCRIT 37.2 % (32.4-45.2); HEMOGLOBIN 12.5 GM/dL (10.7-15.3); MCH 25.4 pg (25.7-33.7); MCHC 33.7 g/dl (32.0-36.0); MEAN CELL VOLUME 75.3 fl (80-96); MEAN PLT VOLUME 11.2 fl (7.5-11.1); MONO % 6.3 % (3.8-10.2); NEUT % 36.3 % (42.8-82.8); PLATELET COUNT 128 K/MM3 (134-434); RBC 4.93 M/mm3 (3.60-5.2); RDW 14.4 % (11.6-15.6); WHITE BLOOD COUNT 4.5 K/mm3 (4.0-10.0)
[2020-09-05] MEDS ORDERED: ONDANSETRON 4 MG/2 ML VIAL ONE (09:13)
[2020-09-05] MEDS: ENOXAPARIN NA (PORCINE) 40 MG/0.4 ML DISP.SYRIN SQ SCH ×2 (11:26→11:35)
[2020-09-05] MEDS: methylPREDNISolone NA SUCC 40 MG/1 ML VIAL IVPUSH SCH ×2 (11:26→17:14)
[2020-09-05] MEDS: NICOTINE 7 MG/24 HOURS TOPICAL PATCH TD SCH (11:26)
[2020-09-05 11:31] LABS: ANISOCYTOSIS 1+; MACROCYTOSIS 0; PLATELET ESTIMATE DECREASED
[2020-09-05] MEDS: INSULIN SLIDING SCALE (NOVOLOG) 1 VIAL SQ SCH ×2 (11:38→17:12)
[2020-09-05 12:04] VITALS: BMI 29.6
[2020-09-05] MEDS: BUDESONIDE/FORMETEROL FUMARATE 160/4.5 mcg INHALER IH SCH ×2 (12:08→22:05)
[2020-09-05] MEDS ORDERED: PT OWN MED DRAWER 7, Y5N ONE (12:14)
[2020-09-05] MEDS ORDERED: amLODIPine BESYLATE 10 MG TABLET (FP) PO ONE (17:56)
[2020-09-05] MEDS ORDERED: IBUPROFEN 200 MG TABLET PO ONE (18:02)
[2020-09-05] MEDS ORDERED: ACETAMINOPHEN 325 MG TABLET (FP) PO PRN (18:28)
[2020-09-05] MEDS ORDERED: guaiFENesin/D-M SUGAR-FREE/ACLHOL-FREE 118 ML BOTTLE PO PRN (18:29)
[2020-09-05] MEDS: amLODIPine BESYLATE 10 MG TABLET (FP) PO SCH (18:39)
[2020-09-05] MEDS ORDERED: ATORVASTATIN CA 40 MG TABLET (FP) PO SCH (22:00)
[2020-09-05] MEDS: CYCLOBENZAPRINE HCL 10 MG TABLET (FP) PO SCH (22:02)
[2020-09-06] MEDS: methylPREDNISolone NA SUCC 40 MG/1 ML VIAL IVPUSH SCH ×3 (01:28→18:13)
[2020-09-06] MEDS: INSULIN SLIDING SCALE (NOVOLOG) 1 VIAL SQ SCH ×3 (06:32→17:17)
[2020-09-06 09:19] VITALS: BP 137/88; TEMP 98
[2020-09-06] MEDS: CYCLOBENZAPRINE HCL 10 MG TABLET (FP) PO SCH (09:19)
[2020-09-06] MEDS: NICOTINE 7 MG/24 HOURS TOPICAL PATCH TD SCH (09:19)
[2020-09-06] MEDS: amLODIPine BESYLATE 10 MG TABLET (FP) PO SCH (09:19)
[2020-09-06] MEDS: ENOXAPARIN NA (PORCINE) 40 MG/0.4 ML DISP.SYRIN SQ SCH (09:19)
[2020-09-06] MEDS: BUDESONIDE/FORMETEROL FUMARATE 160/4.5 mcg INHALER IH SCH (09:22)
[2020-09-06] MEDS ORDERED: sitaGLIPtin PHOSPHATE 50 MG TABLET PO SCH (13:22)
[2020-09-06 15:01] VITALS: PULSE 92
== END 2020-09-06 18:50 | disposition home or self-care (01) | DRG 192 ==
LOC: JER 21:58 → JERBED 09-05 03:43 → J4W 09-05 11:07
PROVIDERS: ADMIT Hospitalist; ATTEND Family Medicine
DX: J44.1 Chronic obstructive pulmonary disease with (acute) exacerbation (principal); I10 Essential (primary) hypertension; E78.5 Hyperlipidemia, unspecified; E11.9 Type 2 diabetes mellitus without complications; K21.9 Gastro-esophageal reflux disease without esophagitis; L93.0 Discoid lupus erythematosus; K57.90 Diverticulosis of intestine, part unspecified, without perforation or abscess without bleeding; J44.9 Chronic obstructive pulmonary disease, unspecified; I48.91 Unspecified atrial fibrillation; E87.6 Hypokalemia; G47.33 Obstructive sleep apnea (adult) (pediatric); R39.15 Urgency of urination; R05 Cough; R09.02 Hypoxemia
CPT/HCPCS: 36415; 71275-TC; 80053; 82962; 83036; 83735; 85025; 85379; 85610; 85730; 93005; 93010; 93970-TC; 94761; 99285-25; C9803; U0003

== ENCOUNTER 2020-09-07 21:10 | Inpatient (IN) | payer OTHER ==
[2020-09-07 21:32] VITALS: BMI 27.3
[2020-09-07] MEDS ORDERED: dilTIAZem HCL 50 MG/10 ML - 10 ML VIAL IVPUSH ONE ×2 (21:35→21:48)
[2020-09-07] MEDS ORDERED: dilTIAZem HCL 125 MG/25 ML - 25 ML VIAL ONE ×2 (21:39→21:52)
[2020-09-07] MEDS ORDERED: LACTATED RINGERS SOLUTION 1000 ML INFUS.BAG IV ONE (21:56)
[2020-09-07 21:59] LABS: BASO % 0.1 % (0-2.0); HEMATOCRIT 41.1 % (32.4-45.2); HEMOGLOBIN 13.9 GM/dL (10.7-15.3); LYMPH % 21.3 % (8-40); MCH 25.5 pg (25.7-33.7); MCHC 33.9 g/dl (32.0-36.0); MEAN CELL VOLUME 75.2 fl (80-96); MEAN PLT VOLUME 10.9 fl (7.5-11.1); MONO % 4.4 % (3.8-10.2); NEUT % 74.2 % (42.8-82.8); PLATELET COUNT 134 K/MM3 (134-434); RBC 5.47 M/mm3 (3.60-5.2); RDW 14.3 % (11.6-15.6); WHITE BLOOD COUNT 10.9 K/mm3 (4.0-10.0)
[2020-09-07 22:07] LABS: INR 1.07 (0.83-1.09); PROTHROMBIN TIME (PATIENT) 13.1 SEC (9.7-13.0)
[2020-09-07 22:10] LABS: ACTIVATED PTT 29.2 SECONDS (25.2-36.5)
[2020-09-07 22:13] LABS: CHLORIDE 100 mmol/L (98-107); POTASSIUM 3.5 mmol/L (3.5-5.1); SODIUM 137 mmol/L (136-145)
[2020-09-07 22:15] LABS: ALBUMIN 4.2 g/dl (3.4-5.0); ANION GAP 8 MMOL/L (8-16); BLOOD UREA NITROGEN 22.7 mg/dL (7-18); CALCIUM 9.5 mg/dL (8.5-10.1); CO2 29 mmol/L (21-32); GLUCOSE,RANDOM 78 mg/dL (74-106)
[2020-09-07 22:19] LABS: CREATININE 0.8 mg/dL (0.55-1.3); SGOT/AST 62 U/L (15-37); SGPT/ALT 58 U/L (13-61)
[2020-09-07 22:20] LABS: BILIRUBIN,TOTAL 0.4 mg/dL (0.2-1); TOT PROT 9.1 g/dl (6.4-8.2)
[2020-09-07 22:21] LABS: ALK PHOS 98 U/L (45-117)
[2020-09-07] MEDS ORDERED: ASPIRIN 81 MG CHEWABLE TABLETS PO ONE (22:30)
[2020-09-07] MEDS ORDERED: ASPIRIN 81 MG CHEWABLE TABLETS ONE (22:34)
[2020-09-07] MEDS ORDERED: ENOXAPARIN NA (PORCINE) 40 MG/0.4 ML DISP.SYRIN SQ ONE ×2 (22:43→22:52)
[2020-09-07] MEDS ORDERED: BUDESONIDE/FORMETEROL FUMARATE 160/4.5 mcg INHALER IH ONE (22:50)
[2020-09-07 23:25] LABS: PH,URINE 6.5 (5.0-8.0); URINE APPEARANCE CLEAR; URINE BILIRUBIN NEGATIVE (NEGATIVE); URINE COLOR YELLOW; URINE GLUCOSE (UA) NEGATIVE (NEGATIVE); URINE KETONE NEGATIVE (NEGATIVE); URINE LEUK ESTERASE NEGATIVE (NEGATIVE); URINE NITRITE NEGATIVE (NEGATIVE); URINE PROTEIN NEGATIVE (NEGATIVE); URINE UROBILINOGEN 0.2 mg/dL (0.2-1.0)
[2020-09-08] MEDS: INSULIN SLIDING SCALE (NOVOLOG) 1 VIAL SQ SCH ×4 (08:59→22:35)
[2020-09-08] MEDS ORDERED: APIXABAN 5 MG TABLET ONE ×2 (11:36→22:24)
[2020-09-08] MEDS: APIXABAN 5 MG TABLET PO SCH ×2 (11:37→22:35)
[2020-09-08] MEDS ORDERED: ATORVASTATIN CA 40 MG TABLET (FP) PO SCH (22:00)
[2020-09-08] MEDS ORDERED: ATORVASTATIN CA 40 MG TABLET (FP) ONE (22:24)
[2020-09-09 05:52] VITALS: TEMP 97.7
[2020-09-09] MEDS: INSULIN SLIDING SCALE (NOVOLOG) 1 VIAL SQ SCH ×3 (07:27→17:01)
[2020-09-09] MEDS ORDERED: REGADENOSON 0.4 MG/5 ML PRE-FILLED SYRINGE IVPUSH ONE ×2 (09:43→10:00)
[2020-09-09] MEDS ORDERED: metFORMIN HCL 500 MG TABLET (FP) PO SCH (10:00)
[2020-09-09] MEDS ORDERED: BUDESONIDE/FORMETEROL FUMARATE 160/4.5 mcg INHALER IH SCH (10:00)
[2020-09-09] MEDS ORDERED: VALSARTAN 80 MG TABLET PO SCH (10:00)
[2020-09-09] MEDS ORDERED: amLODIPine BESYLATE 5 MG TABLET (FP) PO SCH ×2 (10:00)
[2020-09-09] MEDS ORDERED: APIXABAN 5 MG TABLET ONE (13:01)
[2020-09-09] MEDS ORDERED: metFORMIN HCL 500 MG TABLET (FP) ONE (13:01)
[2020-09-09] MEDS ORDERED: VALSARTAN 80 MG TABLET ONE (13:02)
[2020-09-09] MEDS: APIXABAN 5 MG TABLET PO SCH (13:10)
[2020-09-09 14:42] LABS: BASO % 0.3 % (0-2.0); EOS % 0.5 % (0-4.5); HEMATOCRIT 40.6 % (32.4-45.2); HEMOGLOBIN 13.6 GM/dL (10.7-15.3); LYMPH % 31.6 % (8-40); MCH 25.4 pg (25.7-33.7); MCHC 33.4 g/dl (32.0-36.0); MEAN PLT VOLUME 11.3 fl (7.5-11.1); MONO % 5.2 % (3.8-10.2); NEUT % 62.4 % (42.8-82.8); PLATELET COUNT 116 K/MM3 (134-434); RBC 5.34 M/mm3 (3.60-5.2); RDW 14.3 % (11.6-15.6); WHITE BLOOD COUNT 6.2 K/mm3 (4.0-10.0)
[2020-09-09 15:02] LABS: POTASSIUM 3.9 mmol/L (3.5-5.1)
[2020-09-09 15:04] LABS: BLOOD UREA NITROGEN 9.8 mg/dL (7-18); CALCIUM 8.9 mg/dL (8.5-10.1)
[2020-09-09 15:05] LABS: ALBUMIN 3.6 g/dl (3.4-5.0)
[2020-09-09 15:08] LABS: CREATININE 0.7 mg/dL (0.55-1.3)
[2020-09-09 15:09] LABS: BILIRUBIN,TOTAL 0.7 mg/dL (0.2-1); TOT PROT 7.7 g/dl (6.4-8.2)
[2020-09-09 17:20] VITALS: BP 130/78; PULSE 85
== END 2020-09-09 18:00 | disposition home or self-care (01) | DRG 310 ==
LOC: JER 21:10 → JERBED 22:31
PROVIDERS: ATTEND Family Medicine
DX: I48.91 Unspecified atrial fibrillation (principal); I10 Essential (primary) hypertension; E78.5 Hyperlipidemia, unspecified; L93.0 Discoid lupus erythematosus; J44.9 Chronic obstructive pulmonary disease, unspecified; K57.90 Diverticulosis of intestine, part unspecified, without perforation or abscess without bleeding; K21.9 Gastro-esophageal reflux disease without esophagitis; E11.9 Type 2 diabetes mellitus without complications; F17.210 Nicotine dependence, cigarettes, uncomplicated; M54.12 Radiculopathy, cervical region; I25.10 Atherosclerotic heart disease of native coronary artery without angina pectoris; Z96.652 Presence of left artificial knee joint; Z86.718 Personal history of other venous thrombosis and embolism
CPT/HCPCS: 36415; 71045-TC-FY; 78452-TC; 80053; 81003; 82010; 82550; 82962; 83036; 84443; 84484; 85025; 85610; 85730; 93005; 93010; 93017; 93306-TC; 99285-25; A9502; C9803; J2785; U0003

== ENCOUNTER 2020-12-16 00:32 | Emergency (ER) | payer OTHER ==
[2020-12-16 01:28] VITALS: TEMP 98.5; BMI 28.1
[2020-12-16] MEDS ORDERED: ACETAMINOPHEN 1000 MG/100 ML VIAL (NON FORMULARY) IVPB ONE (02:12)
[2020-12-16] MEDS ORDERED: ACETAMINOPHEN INJECTION 100 ML IVPB ONE (02:21)
[2020-12-16] MEDS ORDERED: methylPREDNISolone NA SUCC 125 MG/2 ML VIAL IVPUSH ONE (02:31)
[2020-12-16 03:24] LABS: BASO % 0.5 % (0-2.0); EOS % 1.2 % (0-4.5); HEMATOCRIT 31.9 % (32.4-45.2); HEMOGLOBIN 10.7 GM/dL (10.7-15.3); LYMPH % 49.9 % (8-40); MCH 24.3 pg (25.7-33.7); MCHC 33.7 g/dl (32.0-36.0); MEAN CELL VOLUME 72.2 fl (80-96); MEAN PLT VOLUME 9.8 fl (7.5-11.1); MONO % 6.2 % (3.8-10.2); NEUT % 42.2 % (42.8-82.8); PLATELET COUNT 115 K/MM3 (134-434); RBC 4.41 M/mm3 (3.60-5.2); RDW 15.9 % (11.6-15.6); WHITE BLOOD COUNT 5.4 K/mm3 (4.0-10.0)
[2020-12-16] MEDS ORDERED: methylPREDNISolone NA SUCC 125 MG/2 ML VIAL ONE (03:41)
[2020-12-16 03:45] LABS: CALCIUM 9.1 mg/dL (8.5-10.1)
[2020-12-16 03:46] LABS: ALBUMIN 3.9 g/dl (3.4-5.0); CO2 30 mmol/L (21-32); GLUCOSE,RANDOM 134 mg/dL (74-106)
[2020-12-16 03:49] LABS: CREATININE 0.5 mg/dL (0.55-1.3); SGOT/AST 36 U/L (15-37); SGPT/ALT 30 U/L (13-61)
[2020-12-16 03:51] LABS: BILIRUBIN,TOTAL 0.2 mg/dL (0.2-1); TOT PROT 8.3 g/dl (6.4-8.2)
[2020-12-16 03:52] LABS: ALK PHOS 125 U/L (45-117)
[2020-12-16 04:02] LABS: ANION GAP 6 MMOL/L (8-16); CHLORIDE 106 mmol/L (98-107); POTASSIUM 3.3 mmol/L (3.5-5.1); SODIUM 142 mmol/L (136-145)
[2020-12-16] MEDS ORDERED: POTASSIUM CHLORIDE TABS 10 MEQ TABLET.ER (FP) PO ONE (04:10)
[2020-12-16] MEDS ORDERED: POTASSIUM CHLORIDE TABS 10 MEQ TABLET.ER (FP) ONE (04:19)
[2020-12-16 04:41] VITALS: BP 133/84; PULSE 79
== END 2020-12-16 04:42 | disposition home or self-care (01) ==
LOC: JER 00:32
PROC: 3E0333Z Introduction of Anti-inflammatory into Peripheral Vein, Percutaneous Approach (ICD-10-PCS; principal; 2020-12-16)
PROC: 3E033GC Introduction of Other Therapeutic Substance into Peripheral Vein, Percutaneous Approach (ICD-10-PCS; 2020-12-16)
DX: L93.0 Discoid lupus erythematosus (principal)
CPT/HCPCS: 36415; 80053; 84484; 85025; 99284-25; J0131

== ENCOUNTER 2021-02-08 10:41 | Emergency (ER) | payer OTHER ==
[2021-02-08 11:00] VITALS: BP 154/93; PULSE 118; TEMP 98.1; BMI 28.1
[2021-02-08] MEDS ORDERED: DEXAMETHASONE LIQUID 0.5 MG/5 ML PO ONE (11:37)
[2021-02-08] MEDS ORDERED: guaiFENesin/D-M SUGAR-FREE/ACLHOL-FREE 118 ML BOTTLE PO ONE (11:37)
[2021-02-08] MEDS ORDERED: ALBUTEROL SO4 2.5/IPRATROPIUM 0.5 INH SOL 3 ML VIAL.NEB. NEB SCH (11:45)
[2021-02-08] MEDS ORDERED: DEXAMETHASONE SOD PHOSPHATE 10 MG/1 ML VIAL ONE (12:09)
[2021-02-08] MEDS ORDERED: ALBUTEROL SO4 2.5/IPRATROPIUM 0.5 INH SOL 3 ML VIAL.NEB. NEB ONE (12:10)
[2021-02-08] MEDS ORDERED: guaiFENesin/D-METHORPHAN HB 10 ML UNIT-DOSE CUPS ONE (12:11)
== END 2021-02-08 14:21 | disposition home or self-care (01) ==
LOC: JER 10:41
PROC: 3E0F7GC Introduction of Other Therapeutic Substance into Respiratory Tract, Via Natural or Artificial Opening (ICD-10-PCS; principal; 2021-02-08)
DX: J40 Bronchitis, not specified as acute or chronic (principal)
CPT/HCPCS: 71046-TC-FY; 93005; 93010; 99285-25; C9803; U0003; U0005

== ENCOUNTER 2021-02-26 20:47 | Emergency (ER) | payer OTHER ==
[2021-02-26 21:03] VITALS: BMI 29.6
[2021-02-26] MEDS ORDERED: ACETAMINOPHEN WITH CODEINE 300MG/30MG TABLET PO ONE (22:59)
[2021-02-26] MEDS ORDERED: ACETAMINOPHEN WITH CODEINE 300MG/30MG TABLET ONE (23:20)
[2021-02-26 23:24] LABS: BASO % 0.2 % (0-2.0); EOS % 0.9 % (0-4.5); HEMATOCRIT 32.4 % (32.4-45.2); HEMOGLOBIN 10.9 GM/dL (10.7-15.3); MCH 23.5 pg (25.7-33.7); MCHC 33.5 g/dl (32.0-36.0); MEAN CELL VOLUME 70.1 fl (80-96); MEAN PLT VOLUME 9.4 fl (7.5-11.1); MONO % 6.3 % (3.8-10.2); NEUT % 64.6 % (42.8-82.8); PLATELET COUNT 118 10^3/uL (134-434); RBC 4.63 M/mm3 (3.60-5.2); RDW 17.7 % (11.6-15.6); WHITE BLOOD COUNT 6.9 K/mm3 (4.0-10.0)
[2021-02-26 23:27] LABS: PH,URINE 7.5 (5.0-8.0); URINE APPEARANCE CLEAR; URINE BILIRUBIN NEGATIVE (NEGATIVE); URINE COLOR YELLOW; URINE GLUCOSE (UA) NEGATIVE (NEGATIVE); URINE KETONE NEGATIVE (NEGATIVE); URINE LEUK ESTERASE NEGATIVE (NEGATIVE); URINE NITRITE NEGATIVE (NEGATIVE); URINE PROTEIN NEGATIVE (NEGATIVE); URINE UROBILINOGEN 0.2 mg/dL (0.2-1.0)
[2021-02-26 23:31] LABS: INR 1.11 (0.83-1.09); PROTHROMBIN TIME (PATIENT) 13.6 SEC (9.7-13.0)
[2021-02-26 23:34] LABS: ACTIVATED PTT 32.2 SECONDS (25.2-36.5)
[2021-02-26 23:44] LABS: CHLORIDE 97 mmol/L (98-107); PLATELET ESTIMATE DECREASED; SODIUM 136 mmol/L (136-145)
[2021-02-26 23:46] LABS: CALCIUM 10.3 mg/dL (8.5-10.1)
[2021-02-26 23:47] LABS: ALBUMIN 4.2 g/dl (3.4-5.0); ANION GAP 9 MMOL/L (8-16); CO2 30 mmol/L (21-32); GLUCOSE,RANDOM 106 mg/dL (74-106); MAGNESIUM 1.4 mg/dL (1.8-2.4)
[2021-02-26 23:50] LABS: CREATININE 0.6 mg/dL (0.55-1.3); SGOT/AST 44 U/L (15-37); SGPT/ALT 39 U/L (13-61)
[2021-02-26 23:51] LABS: BILIRUBIN,TOTAL 0.7 mg/dL (0.2-1); TOT PROT 8.8 g/dl (6.4-8.2)
[2021-02-26 23:52] LABS: ALK PHOS 86 U/L (45-117)
[2021-02-27] MEDS ORDERED: MAGNESIUM 1GM/D5W - 1 GM/100 ML IVPB IVPB ONE (01:34)
[2021-02-27] MEDS ORDERED: ACETAMINOPHEN WITH CODEINE 300MG/30MG TABLET ONE (02:35)
[2021-02-27] MEDS ORDERED: ACETAMINOPHEN WITH CODEINE 300MG/30MG TABLET PO ONE (02:36)
[2021-02-27 03:07] VITALS: BP 139/83; PULSE 80; TEMP 98.4
== END 2021-02-27 03:28 | disposition home or self-care (01) ==
LOC: JER 20:47
PROC: 3E033NZ Introduction of Analgesics, Hypnotics, Sedatives into Peripheral Vein, Percutaneous Approach (ICD-10-PCS; principal; 2021-02-27)
DX: R05 Cough (principal); R42 Dizziness and giddiness
CPT/HCPCS: 36415; 71046-TC-FY; 80053; 81003; 82550; 82553; 83735; 84484; 85025; 85610; 85730; 93005; 93010; 99285-25; C9803; U0003; U0005

== ENCOUNTER 2021-05-10 18:47 | Emergency (ER) | payer OTHER ==
[2021-05-10 19:24] VITALS: BP 111/78; PULSE 90; TEMP 98.1; BMI 31.3
[2021-05-10] MEDS ORDERED: valACYclovir HCL 1000 MG TABLET PO ONE (20:35)
[2021-05-10] MEDS ORDERED: ACETAMINOPHEN 325 MG TABLET (FP) PO ONE (20:36)
[2021-05-10] MEDS ORDERED: ACETAMINOPHEN 325 MG TABLET (FP) ONE (20:48)
[2021-05-10] MEDS ORDERED: valACYclovir HCL 500 MG TABLET (FP) ONE (20:48)
== END 2021-05-10 21:42 | disposition home or self-care (01) ==
LOC: JER 18:47
DX: B02.9 Zoster without complications (principal)
CPT/HCPCS: 99283-25

== ENCOUNTER 2021-05-16 08:37 | Emergency (ER) | payer OTHER ==
[2021-05-16 09:05] VITALS: BP 160/90; PULSE 66; TEMP 96; BMI 28.8
== END 2021-05-16 10:30 | disposition home or self-care (01) ==
LOC: JERFT 08:37
DX: B02.9 Zoster without complications (principal)
CPT/HCPCS: 99281-25

== ENCOUNTER 2021-07-04 23:17 | Emergency (ER) | payer OTHER ==
[2021-07-04 23:26] VITALS: BMI 29.4
[2021-07-05 01:45] LABS: BASO % 0.3 % (0-2.0); EOS % 1.1 % (0-4.5); HEMATOCRIT 34.4 % (32.4-45.2); HEMOGLOBIN 11.6 GM/dL (10.7-15.3); LYMPH % 49.9 % (8-40); MCH 23.5 pg (25.7-33.7); MCHC 33.8 g/dl (32.0-36.0); MEAN CELL VOLUME 69.7 fl (80-96); MONO % 6.9 % (3.8-10.2); NEUT % 41.8 % (42.8-82.8); PLATELET COUNT 126 10^3/uL (134-434); RBC 4.93 M/mm3 (3.60-5.2); RDW 18.8 % (11.6-15.6); WHITE BLOOD COUNT 4.6 K/mm3 (4.0-10.0)
[2021-07-05 01:48] LABS: CALCIUM 8.8 mg/dL (8.5-10.1)
[2021-07-05 01:49] LABS: ALBUMIN 3.7 g/dl (3.4-5.0); BLOOD UREA NITROGEN 6.9 mg/dL (7-18)
[2021-07-05 01:52] LABS: CREATININE 0.5 mg/dL (0.55-1.3)
[2021-07-05 01:53] LABS: BILIRUBIN,TOTAL 0.3 mg/dL (0.2-1); TOT PROT 8.1 g/dl (6.4-8.2)
[2021-07-05] MEDS ORDERED: HALOPERIDOL LACTATE 5 MG/ML IM ONE (02:04)
[2021-07-05] MEDS ORDERED: LORazepam 2 MG/ML SDV VIAL ONE (02:08)
[2021-07-05] MEDS ORDERED: HALOPERIDOL LACTATE 5 MG/ML ONE (02:08)
[2021-07-05] MEDS ORDERED: LORazepam 2 MG/ML SDV VIAL IM ONE (02:19)
[2021-07-05] MEDS ORDERED: POTASSIUM CHLORIDE ORAL LIQUID 20 MEQ/15 ML PO ONE (02:28)
[2021-07-05] MEDS ORDERED: POTASSIUM CHLORIDE ORAL LIQUID 20 MEQ/15 ML ONE (02:34)
[2021-07-05] MEDS ORDERED: ACETAMINOPHEN INJECTION 100 ML IVPB ONE (09:17)
[2021-07-05 15:57] VITALS: BP 128/92; PULSE 78; TEMP 98
== END 2021-07-05 16:57 | disposition home or self-care (01) ==
LOC: JER 23:17
PROC: 3E023NZ Introduction of Analgesics, Hypnotics, Sedatives into Muscle, Percutaneous Approach (ICD-10-PCS; principal; 2021-07-05)
PROC: 3E023GC Introduction of Other Therapeutic Substance into Muscle, Percutaneous Approach (ICD-10-PCS; 2021-07-05)
DX: F32.A Depression, unspecified (principal)
CPT/HCPCS: 36415; 80053; 80307; 84443; 85025; 93005; 93010; 96372; 99284-25; C9803; U0003; U0005

== ENCOUNTER 2021-11-13 06:28 | Day surgery (SDC) | payer OTHER ==
[2021-11-11 13:39] VITALS: BMI 29.4
[2021-11-13] MEDS ORDERED: MIDAZOLAM HCL 2 MG/2 ML SINGLE DOSE VIAL ONE ×2 (07:05→07:43)
[2021-11-13] MEDS ORDERED: ROPIVACAINE HCL/PF 100 MG/20 ML VIAL ONE (07:06)
[2021-11-13] MEDS ORDERED: KETOROLAC TROMETHAMINE 30 MG/1 ML VIAL ONE ×2 (07:08→08:27)
[2021-11-13] MEDS ORDERED: DEXAMETHASONE SOD PHOSPHATE 4 MG/1 ML VIAL ONE ×2 (07:08→08:27)
[2021-11-13] MEDS ORDERED: PROPOFOL 20 ML ONE ×4 (07:08→07:43)
[2021-11-13] MEDS ORDERED: ONDANSETRON 4 MG/2 ML VIAL ONE ×2 (07:08→08:27)
[2021-11-13] MEDS ORDERED: LIDOCAINE HCL/PF 2% SDV 5ML VIAL ONE ×2 (07:08→07:43)
[2021-11-13] MEDS ORDERED: LIDOCAINE HCL 2% JELLY (5 ML/TUBE) ONE (07:43)
[2021-11-13] MEDS ORDERED: ceFAZolin SODIUM 1 GM VIAL ONE (08:27)
[2021-11-13] MEDS ORDERED: ACETAMINOPHEN 325 MG TABLET (FP) PO PRN (09:27)
[2021-11-13] MEDS ORDERED: ONDANSETRON 4 MG/2 ML VIAL IVPUSH PRN (09:27)
[2021-11-13] MEDS ORDERED: oxyCODONE HCL 5 MG TABLET PO PRN ×2 (09:27)
[2021-11-13] MEDS ORDERED: PROMETHAZINE HCL 25 MG/1 ML VIAL IVPUSH PRN (09:27)
[2021-11-13 09:52] VITALS: PULSE 75; TEMP 97.8
[2021-11-13 10:34] VITALS: BP 110/73
== END 2021-11-13 11:15 | disposition home or self-care (01) ==
LOC: FASU 06:28
PROVIDERS: ATTEND Orthopaedic Surgery
PROC: 0RNJ4ZZ Release Right Shoulder Joint, Percutaneous Endoscopic Approach (ICD-10-PCS; 2021-11-13)
PROC: 0PB94ZZ Excision of Right Clavicle, Percutaneous Endoscopic Approach (ICD-10-PCS; 2021-11-13)
PROC: 0RBJ4ZZ Excision of Right Shoulder Joint, Percutaneous Endoscopic Approach (ICD-10-PCS; 2021-11-13)
PROC: 0LQ14ZZ Repair Right Shoulder Tendon, Percutaneous Endoscopic Approach (ICD-10-PCS; principal; 2021-11-13 08:47)
DX: M75.111 Incomplete rotator cuff tear or rupture of right shoulder, not specified as traumatic (principal); M75.01 Adhesive capsulitis of right shoulder; M75.41 Impingement syndrome of right shoulder; M19.011 Primary osteoarthritis, right shoulder; M65.811 Other synovitis and tenosynovitis, right shoulder; S43.431A Superior glenoid labrum lesion of right shoulder, initial encounter; X58.XXXA Exposure to other specified factors, initial encounter; Y93.9 Activity, unspecified; Y92.9 Unspecified place or not applicable
CPT/HCPCS: 82962

== ENCOUNTER 2022-01-22 21:13 | Emergency (ER) | payer OTHER ==
[2022-01-22 21:27] VITALS: TEMP 98.1; BMI 29.6
[2022-01-22] MEDS ORDERED: SODIUM CHLORIDE 0.9% 500 ML INFUS.BAG IV ONE (22:25)
[2022-01-22 22:45] LABS: BASO % 0.6 % (0-2.0); EOS % 0.6 % (0-4.5); HEMATOCRIT 34.8 % (32.4-45.2); HEMOGLOBIN 11.5 GM/dL (10.7-15.3); LYMPH % 45.8 % (8-40); MCH 22.9 pg (25.7-33.7); MEAN CELL VOLUME 69.3 fl (80-96); MEAN PLT VOLUME 8.7 fl (7.5-11.1); MONO % 9.3 % (3.8-10.2); NEUT % 43.7 % (42.8-82.8); PLATELET COUNT 137 10^3/uL (134-434); RBC 5.03 M/mm3 (3.60-5.2); WHITE BLOOD COUNT 4.5 K/mm3 (4.0-10.0)
[2022-01-22 23:11] LABS: CALCIUM 9.1 mg/dL (8.5-10.1)
[2022-01-22 23:12] LABS: ALBUMIN 3.9 g/dl (3.4-5.0)
[2022-01-22 23:15] LABS: CREATININE 0.5 mg/dL (0.55-1.3)
[2022-01-22 23:16] LABS: BILIRUBIN,TOTAL 0.3 mg/dL (0.2-1); TOT PROT 7.9 g/dl (6.4-8.2)
[2022-01-22] MEDS ORDERED: ACETAMINOPHEN 1000 MG/100 ML BAG IVPB ONE (23:46)
[2022-01-22] MEDS ORDERED: ACETAMINOPHEN INJECTION 100 ML IVPB ONE (23:46)
[2022-01-23 00:21] LABS: MAGNESIUM 1.6 mg/dL (1.8-2.4)
[2022-01-23] MEDS ORDERED: POTASSIUM CHLORIDE TABS 20 MEQ TABLET.ER (FP) PO ONE ×2 (01:22→01:49)
[2022-01-23] MEDS ORDERED: MAGNESIUM OXIDE 400 MG TABLET (FP) PO ONE ×2 (01:22→01:42)
[2022-01-23] MEDS ORDERED: MAGNESIUM SULF 50% (8.12 MEQ/2 ML-1 GM VIAL) IVPB ONE (01:30)
[2022-01-23] MEDS ORDERED: MAGNESIUM OXIDE 400 MG TABLET (FP) ONE (01:50)
[2022-01-23 02:11] VITALS: BP 125/79; PULSE 82
== END 2022-01-23 02:12 | disposition home or self-care (01) ==
LOC: JER 21:13
PROC: 3E033GC Introduction of Other Therapeutic Substance into Peripheral Vein, Percutaneous Approach (ICD-10-PCS; principal; 2022-01-22)
DX: R00.2 Palpitations (principal); E87.6 Hypokalemia; E83.42 Hypomagnesemia
CPT/HCPCS: 36415; 71046-TC-FY; 80053; 82962; 83735; 84443; 84484; 85025; 93005; 93010; 99285-25

== ENCOUNTER 2022-06-01 16:12 | Emergency (ER) | payer OTHER ==
[2022-06-01 16:25] VITALS: BP 148/86; PULSE 78; RESP 18; TEMP 97.8; BMI 28.1
[2022-06-01] MEDS ORDERED: LACTATED RINGERS SOLUTION 1000 ML INFUS.BAG IV ONE (17:15)
[2022-06-01] MEDS ORDERED: ACETAMINOPHEN 1000 MG/100 ML BAG IVPB ONE (17:36)
[2022-06-01 18:20] LABS: BASO % 0.6 % (0-2.0); EOS % 0.9 % (0-4.5); HEMATOCRIT 34.1 % (32.4-45.2); HEMOGLOBIN 11.4 GM/dL (10.7-15.3); LYMPH % 28.7 % (8-40); MCH 23.5 pg (25.7-33.7); MCHC 33.3 g/dl (32.0-36.0); MEAN CELL VOLUME 70.7 fl (80-96); MEAN PLT VOLUME 8.7 fl (7.5-11.1); MONO % 7.6 % (3.8-10.2); NEUT % 62.2 % (42.8-82.8); PLATELET COUNT 136 10^3/uL (134-434); RBC 4.82 M/mm3 (3.60-5.2); RDW 19.3 % (11.6-15.6); WHITE BLOOD COUNT 4.8 K/mm3 (4.0-10.0)
[2022-06-01] MEDS ORDERED: ACETAMINOPHEN INJECTION 100 ML IVPB ONE (18:20)
[2022-06-01 18:41] LABS: ALBUMIN 3.9 g/dl (3.4-5.0); BLOOD UREA NITROGEN 8.2 mg/dL (7-18); CALCIUM 9.8 mg/dL (8.5-10.1)
[2022-06-01] MEDS ORDERED: SILVER NITRATE 75% APPLIC STCK 1 PKT EACH TP ONE (18:42)
[2022-06-01] MEDS ORDERED: SILVER NITRATE 75% APPLIC STCK 1 PKT EACH ONE (18:43)
[2022-06-01 18:44] LABS: CREATININE 0.5 mg/dL (0.55-1.3)
[2022-06-01 18:45] LABS: TOT PROT 8.2 g/dl (6.4-8.2)
[2022-06-01 18:46] LABS: BILIRUBIN,TOTAL 0.5 mg/dL (0.2-1); EPI CELLS 4 /uL (0-25.1); HYALINE CASTS 0 /uL (0-3.1); PH,URINE 7.5 (5.0-8.0); URINE APPEARANCE CLEAR; URINE BACTERIA 95 /uL (0-1359); URINE BILIRUBIN NEGATIVE (NEGATIVE); URINE COLOR YELLOW; URINE GLUCOSE (UA) NEGATIVE (NEGATIVE); URINE KETONE NEGATIVE (NEGATIVE); URINE LEUK ESTERASE TRACE (NEGATIVE); URINE NITRITE NEGATIVE (NEGATIVE); URINE PROTEIN TRACE (NEGATIVE); URINE RBC 2 /uL (0-23.9); URINE UROBILINOGEN 0.2 mg/dL (0.2-1.0); URINE WBC 4 /uL (0-25.8)
== END 2022-06-02 00:38 | disposition home or self-care (01) ==
LOC: JER 16:12
PROC: 3E0333Z Introduction of Anti-inflammatory into Peripheral Vein, Percutaneous Approach (ICD-10-PCS; principal; 2022-06-01)
DX: R04.0 Epistaxis (principal); R10.10 Upper abdominal pain, unspecified
CPT/HCPCS: 36415; 71046-TC-FY; 74177-TC; 80053; 81003; 83690; 84484; 85025; 86850; 86900; 86901; 87086; 93005; 93010; 96374; 99285-25; Q9967

== ENCOUNTER 2022-08-09 18:20 | Emergency (ER) | payer OTHER ==
[2022-08-09 19:22] VITALS: BP 120/80; PULSE 80; RESP 20; TEMP 98; BMI 29.2
== END 2022-08-09 20:45 | disposition left against medical advice (07) ==
LOC: JER 18:20
DX: R07.9 Chest pain, unspecified (principal); R06.02 Shortness of breath
CPT/HCPCS: 93005; 93010; 99281-25

== ENCOUNTER 2022-08-10 18:01 | Emergency (ER) | payer OTHER ==
[2022-08-10 18:22] VITALS: BP 150/88; PULSE 100; RESP 18; TEMP 101; BMI 29.2
[2022-08-10] MEDS ORDERED: ALBUTEROL SO4 2.5/IPRATROPIUM 0.5 INH SOL 3 ML VIAL.NEB. NEB ONE (20:57)
[2022-08-10] MEDS ORDERED: ALBUTEROL SO4 2.5/IPRATROPIUM 0.5 INH SOL 3 ML VIAL.NEB. NEB SCH (21:15)
[2022-08-10] MEDS ORDERED: ONDANSETRON *ODT* 4 MG TABLET SL ONE (22:32)
[2022-08-10] MEDS ORDERED: ONDANSETRON *ODT* 4 MG TABLET ONE (22:32)
== END 2022-08-10 23:02 | disposition home or self-care (01) ==
LOC: JER 18:01
DX: J09.X2 Influenza due to identified novel influenza A virus with other respiratory manifestations (principal)
CPT/HCPCS: 0241U-QW; 99283-25; Q0162

== ENCOUNTER 2022-08-21 03:34 | Emergency (ER) | payer OTHER ==
[2022-08-21 03:42] VITALS: BP 185/99; PULSE 77; RESP 20; BMI 28.1
[2022-08-21 04:08] VITALS: TEMP 97.6
[2022-08-21 05:21] LABS: HEMOGLOBIN 10.8 GM/dL (10.7-15.3); MCHC 32.5 g/dl (32.0-36.0)
[2022-08-21] MEDS ORDERED: ACETAMINOPHEN 1000 MG/100 ML BAG IVPB ONE (05:40)
[2022-08-21] MEDS ORDERED: ACETAMINOPHEN INJECTION 100 ML IVPB ONE (05:43)
[2022-08-21 05:53] LABS: HEMATOCRIT 33.3 % (32.4-45.2); MCH 22.7 pg (25.7-33.7); MEAN CELL VOLUME 69.7 fl (80-96); MEAN PLT VOLUME 9.7 fl (7.5-11.1); PLATELET COUNT 184 10^3/uL (134-434); RBC 4.78 M/mm3 (3.60-5.2); RDW 17.7 % (11.6-15.6); WHITE BLOOD COUNT 5.2 K/mm3 (4.0-10.0)
[2022-08-21 06:08] LABS: CALCIUM 8.8 mg/dL (8.5-10.1)
[2022-08-21 06:09] LABS: ALBUMIN 3.9 g/dl (3.4-5.0); BLOOD UREA NITROGEN 17.6 mg/dL (7-18)
[2022-08-21 06:13] LABS: CREATININE 0.5 mg/dL (0.55-1.3); TOT PROT 8.1 g/dl (6.4-8.2)
[2022-08-21 06:14] LABS: BILIRUBIN,TOTAL 0.6 mg/dL (0.2-1)
[2022-08-21] MEDS ORDERED: MAGNESIUM SULF 50% (8.12 MEQ/2 ML-1 GM VIAL) IVPB ONE (06:22)
[2022-08-21] MEDS ORDERED: VALSARTAN 80 MG TABLET PO ONE (06:23)
[2022-08-21] MEDS ORDERED: POTASSIUM CHLORIDE TABS 20 MEQ TABLET.ER (FP) PO ONE ×2 (06:27→06:58)
[2022-08-21] MEDS ORDERED: VALSARTAN 80 MG TABLET ONE (06:58)
[2022-08-21] MEDS ORDERED: SODIUM CHLORIDE 0.9% 500 ML INFUS.BAG IV ONE (06:58)
[2022-08-21] MEDS ORDERED: MAGNESIUM SULFATE IN WATER 2 GM/50 ML IVPB IVPB ONE (06:59)
[2022-08-21 07:36] LABS: INR 1.14 (0.83-1.09); PROTHROMBIN TIME (PATIENT) 13.1 SEC (9.7-13.0)
[2022-08-21 07:38] LABS: ACTIVATED PTT 31.6 SECONDS (25.2-36.5)
[2022-08-21 08:13] LABS: MAGNESIUM 1.1 mg/dL (1.8-2.4)
[2022-08-21 08:14] LABS: PHOSPHOROUS 3.8 mg/dL (2.5-4.9)
[2022-08-21 09:16] LABS: ANISOCYTOSIS 2+; MACROCYTOSIS 0; TARGET CELLS 2+
== END 2022-08-21 11:30 | disposition home or self-care (01) ==
LOC: JER 03:34
PROC: 3E0333Z Introduction of Anti-inflammatory into Peripheral Vein, Percutaneous Approach (ICD-10-PCS; principal; 2022-08-21)
PROC: 3E033GC Introduction of Other Therapeutic Substance into Peripheral Vein, Percutaneous Approach (ICD-10-PCS; 2022-08-21)
DX: M25.511 Pain in right shoulder (principal); I25.84 Coronary atherosclerosis due to calcified coronary lesion; R07.9 Chest pain, unspecified
CPT/HCPCS: 0241U-QW; 36415; 71045-TC-FY; 71275-TC; 73030-TC-LT-FY; 73030-TC-RT-FY; 80053; 83735; 84100; 84484; 85025; 85379; 85610; 85730; 93005; 93010; 99285-25; Q9967

== ENCOUNTER 2023-01-03 08:20 | Emergency (ER) | payer OTHER ==
[2023-01-03 08:47] VITALS: RESP 16; BMI 28.1
[2023-01-03] MEDS ORDERED: LIDOCAINE 5% TOPICAL PATCH TP ONE (10:37)
[2023-01-03] MEDS ORDERED: KETOROLAC TROMETHAMINE 30 MG/1 ML VIAL IM ONE (10:37)
[2023-01-03] MEDS ORDERED: LIDOCAINE PATCH REMOVAL MC ONE (10:38)
[2023-01-03] MEDS ORDERED: KETOROLAC TROMETHAMINE 30 MG/1 ML VIAL ONE (11:25)
[2023-01-03] MEDS ORDERED: LIDOCAINE 5% TOPICAL PATCH ONE (11:25)
[2023-01-03 12:45] VITALS: BP 158/88; PULSE 77; TEMP 97.8
== END 2023-01-03 12:45 | disposition home or self-care (01) ==
LOC: JER 08:20
PROC: 3E0233Z Introduction of Anti-inflammatory into Muscle, Percutaneous Approach (ICD-10-PCS; principal; 2023-01-03)
DX: M25.511 Pain in right shoulder (principal)
CPT/HCPCS: 73030-TC-LT-FY; 73030-TC-RT-FY; 96372; 99284-25

== ENCOUNTER 2023-01-27 14:23 | Observation (INO) | payer OTHER ==
[2023-01-27 15:21] LABS: BASO % 0.6 % (0-2.0); EOS % 0.4 % (0-4.5); HEMATOCRIT 33.7 % (32.4-45.2); HEMOGLOBIN 11.7 GM/dL (10.7-15.3); LYMPH % 50.6 % (8-40); MCH 23.3 pg (25.7-33.7); MCHC 34.7 g/dl (32.0-36.0); MEAN CELL VOLUME 67.3 fl (80-96); MEAN PLT VOLUME 9.1 fl (7.5-11.1); MONO % 6.2 % (3.8-10.2); NEUT % 42.2 % (42.8-82.8); PLATELET COUNT 128 10^3/uL (134-434); RBC 5.01 M/mm3 (3.60-5.2); RDW 20.7 % (11.6-15.6); WHITE BLOOD COUNT 4.1 K/mm3 (4.0-10.0)
[2023-01-27 15:27] LABS: INR 1.17 (0.83-1.09); PROTHROMBIN TIME (PATIENT) 13.5 SEC (9.7-13.0)
[2023-01-27 15:29] LABS: ACTIVATED PTT 34.7 SECONDS (25.2-36.5)
[2023-01-27] MEDS ORDERED: ACETAMINOPHEN 1000 MG/100 ML BAG IVPB ONE (15:37)
[2023-01-27] MEDS ORDERED: LIDOCAINE 5% TOPICAL PATCH TP ONE (15:37)
[2023-01-27 15:41] LABS: ANISOCYTOSIS 3+; MACROCYTOSIS 0; PLATELET ESTIMATE DECREASED; TARGET CELLS 1+
[2023-01-27 15:42] LABS: CHLORIDE 104 mmol/L (98-107); POTASSIUM 3.3 mmol/L (3.5-5.1); SODIUM 141 mmol/L (136-145)
[2023-01-27 15:44] LABS: ALBUMIN 3.7 g/dl (3.4-5.0); ANION GAP 9 MMOL/L (8-16); BLOOD UREA NITROGEN 9.2 mg/dL (7-18); CALCIUM 8.6 mg/dL (8.5-10.1); CO2 28 mmol/L (21-32); GLUCOSE,RANDOM 79 mg/dL (74-106)
[2023-01-27 15:47] LABS: CREATININE 0.4 mg/dL (0.55-1.3); SGPT/ALT 49 U/L (13-61)
[2023-01-27 15:48] LABS: SGOT/AST 82 U/L (15-37)
[2023-01-27 15:49] LABS: BILIRUBIN,TOTAL 0.5 mg/dL (0.2-1); TOT PROT 8.4 g/dl (6.4-8.2)
[2023-01-27 15:50] LABS: ALK PHOS 118 U/L (45-117)
[2023-01-27] MEDS ORDERED: ACETAMINOPHEN INJECTION 100 ML IVPB ONE (16:16)
[2023-01-27] MEDS ORDERED: LIDOCAINE 5% TOPICAL PATCH ONE ×2 (16:16)
[2023-01-27] MEDS ORDERED: POTASSIUM CHLORIDE ORAL LIQUID 20 MEQ/15 ML PO ONE (18:22)
[2023-01-27 19:02] LABS: MAGNESIUM 0.9 mg/dL (1.8-2.4)
[2023-01-27] MEDS ORDERED: MAGNESIUM SULF 50% (8.12 MEQ/2 ML-1 GM VIAL) IVPB ONE (19:05)
[2023-01-27] MEDS ORDERED: POTASSIUM CHLORIDE ORAL LIQUID 20 MEQ/15 ML ONE (19:13)
[2023-01-27] MEDS ORDERED: MAGNESIUM SULFATE IN WATER 2 GM/50 ML IVPB IVPB ONE (19:14)
[2023-01-27] MEDS ORDERED: ONDANSETRON 4 MG/2 ML VIAL IVPUSH ONE (20:26)
[2023-01-27] MEDS ORDERED: DOCUSATE SODIUM 100 MG CAPSULE (FP) PO PRN (20:28)
[2023-01-27] MEDS ORDERED: ONDANSETRON 4 MG/2 ML VIAL ONE (20:28)
[2023-01-27] MEDS ORDERED: MAGNESIUM OXIDE 400 MG TABLET (FP) PO ONE (20:34)
[2023-01-27] MEDS ORDERED: MAGNESIUM OXIDE 400 MG TABLET (FP) ONE (21:04)
[2023-01-27] MEDS ORDERED: LIDOCAINE PATCH REMOVAL MC ONE (22:00)
[2023-01-27] MEDS: ACETAMINOPHEN 1000 MG/100 ML BAG IVPB PRN (23:02)
[2023-01-28 03:11] VITALS: BMI 26.9
[2023-01-28] MEDS ORDERED: LIDOCAINE 5% TOPICAL PATCH TP SCH (05:18)
[2023-01-28] MEDS: ACETAMINOPHEN 1000 MG/100 ML BAG IVPB PRN ×3 (05:24→19:47)
[2023-01-28 08:00] LABS: POTASSIUM 3.4 mmol/L (3.5-5.1)
[2023-01-28 08:02] LABS: BLOOD UREA NITROGEN 9.3 mg/dL (7-18); CALCIUM 8.4 mg/dL (8.5-10.1)
[2023-01-28 08:03] LABS: MAGNESIUM 1.2 mg/dL (1.8-2.4)
[2023-01-28 08:06] LABS: CREATININE 0.5 mg/dL (0.55-1.3); PHOSPHOROUS 3.7 mg/dL (2.5-4.9)
[2023-01-28 08:31] LABS: HEMATOCRIT 34.4 % (32.4-45.2); HEMOGLOBIN 11.7 GM/dL (10.7-15.3); MEAN CELL VOLUME 67.6 fl (80-96); MEAN PLT VOLUME 9.4 fl (7.5-11.1); PLATELET COUNT 116 10^3/uL (134-434); RBC 5.09 M/mm3 (3.60-5.2); RDW 21.1 % (11.6-15.6); WHITE BLOOD COUNT 3.3 K/mm3 (4.0-10.0)
[2023-01-28 09:11] LABS: ANISOCYTOSIS 3+; MACROCYTOSIS 0; PLATELET ESTIMATE DECREASED; TARGET CELLS 2+
[2023-01-28] MEDS: HEPARIN NA (PORCINE) 5,000 UNITS/ML 1ML VIAL SQ SCH ×2 (09:17→21:52)
[2023-01-28] MEDS: METHOCARBAMOL 500 MG TABLET PO PRN ×2 (09:20→19:46)
[2023-01-28] MEDS ORDERED: POTASSIUM CHLORIDE ORAL LIQUID 20 MEQ/15 ML PO ONE (10:32)
[2023-01-28] MEDS ORDERED: MAGNESIUM SULF 50% (8.12 MEQ/2 ML-1 GM VIAL) IVPB ONE (10:32)
[2023-01-28] MEDS ORDERED: VALSARTAN 80 MG TABLET PO SCH (15:15)
[2023-01-28] MEDS: metFORMIN HCL 500 MG TABLET (FP) PO SCH (17:21)
[2023-01-28] MEDS: INSULIN SLIDING SCALE (NOVOLOG) 1 VIAL SQ SCH ×2 (17:22→22:50)
[2023-01-28] MEDS ORDERED: LIDOCAINE PATCH REMOVAL MC ONE (18:00)
[2023-01-28] MEDS ORDERED: VALSARTAN 80 MG TABLET PO ONE (20:30)
[2023-01-28] MEDS: POTASSIUM CHLORIDE TABS 20 MEQ TABLET.ER (FP) PO SCH (21:51)
[2023-01-28] MEDS: PANTOPRAZOLE 40 MG TABLET PO SCH (21:51)
[2023-01-28] MEDS: CYCLOBENZAPRINE HCL 10 MG TABLET (FP) PO SCH (21:51)
[2023-01-28] MEDS: ATORVASTATIN CA 40 MG TABLET (FP) PO SCH (21:52)
[2023-01-28] MEDS: BUDESONIDE/FORMETEROL FUMARATE 160/4.5 mcg INHALER IH SCH (21:52)
[2023-01-29] MEDS: LIDOCAINE 5% TOPICAL PATCH TP SCH (05:49)
[2023-01-29] MEDS: ACETAMINOPHEN 325 MG TABLET (FP) PO PRN ×2 (05:56→21:41)
[2023-01-29] MEDS: METHOCARBAMOL 500 MG TABLET PO PRN ×2 (06:00→21:40)
[2023-01-29] MEDS: metFORMIN HCL 500 MG TABLET (FP) PO SCH ×2 (06:00→17:03)
[2023-01-29] MEDS: INSULIN SLIDING SCALE (NOVOLOG) 1 VIAL SQ SCH ×4 (06:00→21:42)
[2023-01-29] MEDS: HEPARIN NA (PORCINE) 5,000 UNITS/ML 1ML VIAL SQ SCH ×2 (09:51→21:42)
[2023-01-29] MEDS: POTASSIUM CHLORIDE TABS 20 MEQ TABLET.ER (FP) PO SCH ×2 (09:51→21:42)
[2023-01-29] MEDS: PANTOPRAZOLE 40 MG TABLET PO SCH ×2 (09:51→21:42)
[2023-01-29] MEDS: VALSARTAN 160 MG TABLET PO SCH (09:51)
[2023-01-29] MEDS: CYCLOBENZAPRINE HCL 10 MG TABLET (FP) PO SCH ×2 (09:52→21:42)
[2023-01-29] MEDS: BUDESONIDE/FORMETEROL FUMARATE 160/4.5 mcg INHALER IH SCH ×2 (09:53→21:43)
[2023-01-29] MEDS ORDERED: INSULIN (NOVOLOG) ASPART 100 UNITS/ML 10ML VIAL ONE ×2 (11:25→21:24)
[2023-01-29] MEDS ORDERED: MAGNESIUM SULF 50% (8.12 MEQ/2 ML-1 GM VIAL) IVPB ONE (16:00)
[2023-01-29] MEDS: MAGNESIUM OXIDE 400 MG TABLET (FP) PO SCH (21:42)
[2023-01-29] MEDS: ATORVASTATIN CA 40 MG TABLET (FP) PO SCH (21:42)
[2023-01-29] MEDS ORDERED: BISMUTH SUBSALICYLATE 524 MG/30 ML PO ONE (21:46)
[2023-01-30] MEDS: metFORMIN HCL 500 MG TABLET (FP) PO SCH ×2 (06:19→16:26)
[2023-01-30] MEDS: LIDOCAINE 5% TOPICAL PATCH TP SCH (06:19)
[2023-01-30] MEDS: INSULIN SLIDING SCALE (NOVOLOG) 1 VIAL SQ SCH ×3 (06:20→16:46)
[2023-01-30 09:05] VITALS: RESP 18
[2023-01-30 09:19] LABS: POTASSIUM 4.3 mmol/L (3.5-5.1)
[2023-01-30 09:22] LABS: CALCIUM 9.5 mg/dL (8.5-10.1)
[2023-01-30 09:23] LABS: ALBUMIN 3.6 g/dl (3.4-5.0); BLOOD UREA NITROGEN 9.9 mg/dL (7-18); MAGNESIUM 1.4 mg/dL (1.8-2.4)
[2023-01-30 09:26] LABS: CREATININE 0.5 mg/dL (0.55-1.3)
[2023-01-30 09:27] LABS: BILIRUBIN,TOTAL 1.1 mg/dL (0.2-1); TOT PROT 8.5 g/dl (6.4-8.2)
[2023-01-30] MEDS: CYCLOBENZAPRINE HCL 10 MG TABLET (FP) PO SCH (09:59)
[2023-01-30] MEDS: POTASSIUM CHLORIDE TABS 20 MEQ TABLET.ER (FP) PO SCH (09:59)
[2023-01-30] MEDS: VALSARTAN 160 MG TABLET PO SCH (09:59)
[2023-01-30] MEDS: PANTOPRAZOLE 40 MG TABLET PO SCH (09:59)
[2023-01-30] MEDS: HEPARIN NA (PORCINE) 5,000 UNITS/ML 1ML VIAL SQ SCH (10:00)
[2023-01-30] MEDS: MAGNESIUM OXIDE 400 MG TABLET (FP) PO SCH (10:03)
[2023-01-30] MEDS: BUDESONIDE/FORMETEROL FUMARATE 160/4.5 mcg INHALER IH SCH (10:09)
[2023-01-30] MEDS ORDERED: MAGNESIUM 2GM/50ML STERILE WATER IVPB IVPB SCH (12:45)
[2023-01-30 15:20] VITALS: BP 155/99; PULSE 78; TEMP 98.4
== END 2023-01-30 17:25 | disposition home or self-care (01) ==
LOC: JERFT 14:23 → JER 14:23 → JERBED 19:11 → J7W 21:47
PROVIDERS: ADMIT Internal Medicine; ATTEND Family Medicine
PROC: 3E033NZ Introduction of Analgesics, Hypnotics, Sedatives into Peripheral Vein, Percutaneous Approach (ICD-10-PCS; principal; 2023-01-27)
PROC: 3E013VG Introduction of Insulin into Subcutaneous Tissue, Percutaneous Approach (ICD-10-PCS; 2023-01-27)
PROC: 3E033GC Introduction of Other Therapeutic Substance into Peripheral Vein, Percutaneous Approach (ICD-10-PCS; 2023-01-27)
DX: M54.12 Radiculopathy, cervical region (principal); L93.0 Discoid lupus erythematosus; E11.9 Type 2 diabetes mellitus without complications; I10 Essential (primary) hypertension; E83.42 Hypomagnesemia; I48.0 Paroxysmal atrial fibrillation; M25.511 Pain in right shoulder; M79.10 Myalgia, unspecified site; M25.512 Pain in left shoulder; Z91.013 Allergy to seafood; K76.0 Fatty (change of) liver, not elsewhere classified; M54.50 Low back pain, unspecified; J44.9 Chronic obstructive pulmonary disease, unspecified; Z86.718 Personal history of other venous thrombosis and embolism; F17.210 Nicotine dependence, cigarettes, uncomplicated
CPT/HCPCS: 0241U-QW; 36415; 71045-TC-FY; 71275-TC; 72131-TC; 72141-TC; 73030-TC-LT-FY; 73030-TC-RT-FY; 74174-TC; 80048; 80053; 82962; 83735; 84100; 84484; 85025; 85610; 85730; 86850; 86900; 86901; 93005; 93010; 94010; 96372; 96374; 96375; 96376; 99285-25; G0378; J1644; Q9967

== ENCOUNTER 2023-05-12 11:13 | Emergency (ER) | payer OTHER ==
[2023-05-12 11:21] VITALS: BP 178/102; PULSE 66; RESP 18; TEMP 97.9; BMI 28.1
[2023-05-12] MEDS ORDERED: LACTATED RINGERS SOLUTION 1000 ML INFUS.BAG IV ONE (13:24)
== END 2023-05-12 13:57 | disposition home or self-care (01) ==
LOC: JER 11:13
DX: R19.7 Diarrhea, unspecified (principal); M54.6 Pain in thoracic spine; M79.622 Pain in left upper arm; R07.9 Chest pain, unspecified
CPT/HCPCS: 99282-25

== ENCOUNTER 2023-10-04 22:17 | Emergency (ER) | payer OTHER ==
[2023-10-04 22:33] VITALS: TEMP 98.3; BMI 28.0
[2023-10-04] MEDS ORDERED: LIDOCAINE VISCOUS 2% ORAL/TOP 100 ML BOTTLE MM ONE (23:24)
[2023-10-04] MEDS ORDERED: LIDOCAINE VISCOUS 2% ORAL/TOP 15 ML UNIT-DOSE CUP ONE (23:42)
[2023-10-05 00:04] LABS: BASO % 0.5 % (0-2.0); EOS % 2.5 % (0-4.5); HEMATOCRIT 34.1 % (32.4-45.2); HEMOGLOBIN 11.2 GM/dL (10.7-15.3); MCH 23.6 pg (25.7-33.7); MCHC 32.7 g/dl (32.0-36.0); MEAN CELL VOLUME 72.1 fl (80-96); MEAN PLT VOLUME 9.2 fl (7.5-11.1); MONO % 8.7 % (3.8-10.2); NEUT % 62.3 % (42.8-82.8); PLATELET COUNT 132 10^3/uL (134-434); RBC 4.73 M/mm3 (3.60-5.2); RDW 16.9 % (11.6-15.6); WHITE BLOOD COUNT 5.4 K/mm3 (4.0-10.0)
[2023-10-05 00:22] LABS: CHLORIDE 102 mmol/L (98-107); POTASSIUM 3.7 mmol/L (3.5-5.1); SODIUM 140 mmol/L (136-145)
[2023-10-05 00:24] LABS: ALBUMIN 3.7 g/dl (3.4-5.0); ANION GAP 9 mmol/L (4-13); BLOOD UREA NITROGEN 14.8 mg/dL (7-18); CALCIUM 9.5 mg/dL (8.5-10.1); CO2 29 mmol/L (21-32); GLUCOSE,RANDOM 111 mg/dL (74-106)
[2023-10-05 00:27] LABS: CREATININE 0.6 mg/dL (0.55-1.3); SGPT/ALT 26 U/L (13-61)
[2023-10-05 00:28] LABS: SGOT/AST 24 U/L (15-37)
[2023-10-05 00:29] LABS: BILIRUBIN,TOTAL 0.2 mg/dL (0.2-1); TOT PROT 8.3 g/dl (6.4-8.2)
[2023-10-05 00:30] LABS: ALK PHOS 106 U/L (45-117)
[2023-10-05 00:48] LABS: ERYTHROCYTE SEDIMENTATION RATE 23 mm/hr (0-30)
[2023-10-05] MEDS ORDERED: LACTATED RINGERS SOLUTION 1000 ML INFUS.BAG IV ONE (01:49)
[2023-10-05 02:02] VITALS: BP 187/95; PULSE 57; RESP 16
== END 2023-10-05 02:07 | disposition short-term general hospital (02) ==
LOC: JER 22:17
DX: K12.30 Oral mucositis (ulcerative), unspecified (principal); R21 Rash and other nonspecific skin eruption; L98.429 Non-pressure chronic ulcer of back with unspecified severity; R63.8 Other symptoms and signs concerning food and fluid intake; R42 Dizziness and giddiness; N77.0 Ulceration of vulva in diseases classified elsewhere; Z20.822 Contact with and (suspected) exposure to COVID-19
CPT/HCPCS: 0241U-QW; 36415; 80053; 85025; 85651; 86140; 93005; 93010; 99285-25

== ENCOUNTER 2024-01-17 14:32 | Observation (INO) | payer OTHER ==
[2024-01-17] MEDS ORDERED: ACETAMINOPHEN INJECTION 100 ML IVPB ONE (17:01)
[2024-01-17] MEDS: ACETAMINOPHEN 1000 MG/100 ML BAG IVPB ONE ×2 (17:16→22:38)
[2024-01-17 17:25] LABS: EPI CELLS 16 /uL (0-25.1); HYALINE CASTS 1 /uL (0-3.1); URINE APPEARANCE CLEAR; URINE BACTERIA 10 /uL (0-1359); URINE BILIRUBIN NEGATIVE (NEGATIVE); URINE COLOR YELLOW; URINE GLUCOSE (UA) NEGATIVE (NEGATIVE); URINE KETONE TRACE (NEGATIVE); URINE LEUK ESTERASE NEGATIVE (NEGATIVE); URINE NITRITE NEGATIVE (NEGATIVE); URINE PROTEIN 2+ (NEGATIVE); URINE RBC 14 /uL (0-23.9); URINE WBC 9 /uL (0-25.8)
[2024-01-17 17:31] LABS: HEMATOCRIT 36.8 % (32.4-45.2); MCH 23.5 pg (25.7-33.7); MCHC 32.6 g/dl (32.0-36.0); MEAN CELL VOLUME 72.1 fl (80-96); MEAN PLT VOLUME 10.1 fl (7.5-11.1); RBC 5.11 M/mm3 (3.60-5.2); RDW 18.3 % (11.6-15.6); WHITE BLOOD COUNT 4.5 K/mm3 (4.0-10.0)
[2024-01-17 17:42] LABS: POTASSIUM 3.3 mmol/L (3.5-5.1)
[2024-01-17 17:44] LABS: CALCIUM 9.3 mg/dL (8.5-10.1)
[2024-01-17 17:45] LABS: ALBUMIN 3.8 g/dl (3.4-5.0); BLOOD UREA NITROGEN 12.5 mg/dL (7-18)
[2024-01-17 17:48] LABS: CREATININE 0.5 mg/dL (0.55-1.3)
[2024-01-17 17:49] LABS: TOT PROT 8.7 g/dl (6.4-8.2)
[2024-01-17 17:50] LABS: BILIRUBIN,TOTAL 0.7 mg/dL (0.2-1)
[2024-01-17] MEDS ORDERED: morphine SULFATE 4 MG/ML VIAL ONE (18:03)
[2024-01-17] MEDS: morphine CARPU-JECT 4 MG/1 ML DISP.SYRIN IVPUSH ONE (18:12)
[2024-01-17 18:23] LABS: PLATELET COUNT 137 10^3/uL (134-434)
[2024-01-17] MEDS: morphine SULFATE 4 MG/ML VIAL IVPUSH ONE (19:40)
[2024-01-17] MEDS: MAG HYDROX/ALH/SMC/DPHA/LIDO 240 ML MOUTHWASH MM ONE (20:34)
[2024-01-17] MEDS ORDERED: ALBUTEROL SO4 HFA INHALER IH PRN (22:32)
[2024-01-17 22:33] VITALS: BMI 29.2
[2024-01-17] MEDS: POTASSIUM CHLORIDE ORAL LIQUID 20 MEQ/15 ML PO ONE (22:38)
[2024-01-18] MEDS: metFORMIN HCL 500 MG TABLET (FP) PO SCH (06:11)
[2024-01-18 08:57] LABS: BASO % 0.7 % (0-2.0); HEMATOCRIT 33.6 % (32.4-45.2); HEMOGLOBIN 11.1 GM/dL (10.7-15.3); LYMPH % 43.9 % (8-40); MCH 23.9 pg (25.7-33.7); MCHC 33.1 g/dl (32.0-36.0); MEAN CELL VOLUME 72.2 fl (80-96); MEAN PLT VOLUME 9.4 fl (7.5-11.1); MONO % 12.6 % (3.8-10.2); NEUT % 39.8 % (42.8-82.8); PLATELET COUNT 122 10^3/uL (134-434); RBC 4.66 M/mm3 (3.60-5.2); RDW 18.5 % (11.6-15.6); WHITE BLOOD COUNT 3.6 K/mm3 (4.0-10.0)
[2024-01-18] MEDS: VALSARTAN 80 MG TABLET PO SCH (09:13)
[2024-01-18 13:10] LABS: BLOOD UREA NITROGEN 13.3 mg/dL (7-18); CREATININE 0.6 mg/dL (0.55-1.3); POTASSIUM 4.4 mmol/L (3.5-5.1)
[2024-01-18] MEDS: ACETAMINOPHEN 1000 MG/100 ML BAG IVPB PRN (14:38)
[2024-01-18] MEDS: MAG HYDROX/AL HYDROX/SIMETH 30 ML UNIT-DOSE CUP PO SCH (17:24)
[2024-01-18] MEDS ORDERED: MAG HYDROX/ALH/SMC/DPHA/LIDO 240 ML MOUTHWASH MM ONE (19:30)
[2024-01-19] MEDS: amLODIPine BESYLATE 10 MG TABLET (FP) PO ONE (02:19)
[2024-01-19 06:47] VITALS: RESP 18
[2024-01-19 09:32] VITALS: BP 163/89; PULSE 65; TEMP 97.9
[2024-01-19] MEDS: predniSONE 20 MG TABLET (UD) PO SCH (09:32)
[2024-01-24 12:09] LABS: APTT 26.9 sec (.); B2-GLYCOPROTEIN IGA <10 SAU (.); B2-GLYCOPROTEIN IGG <10 SGU (.); B2-GLYCOPROTEIN IGM <10 SMU (.); HEXAGONAL PHOSPHOLIPID NEUTRAL 6 sec (.)
== END 2024-01-19 13:33 | disposition home or self-care (01) ==
LOC: JER 14:32 → JERBED 17:15 → J7W 20:38
PROVIDERS: ADMIT Internal Medicine; ATTEND Family Medicine
PROC: 3E033NZ Introduction of Analgesics, Hypnotics, Sedatives into Peripheral Vein, Percutaneous Approach (ICD-10-PCS; principal; 2024-01-17)
DX: K12.1 Other forms of stomatitis (principal); L93.0 Discoid lupus erythematosus; I48.91 Unspecified atrial fibrillation; E11.9 Type 2 diabetes mellitus without complications; I10 Essential (primary) hypertension; E78.5 Hyperlipidemia, unspecified; K21.9 Gastro-esophageal reflux disease without esophagitis; K57.90 Diverticulosis of intestine, part unspecified, without perforation or abscess without bleeding; D64.9 Anemia, unspecified; Z90.49 Acquired absence of other specified parts of digestive tract; Z96.652 Presence of left artificial knee joint; Z91.013 Allergy to seafood
CPT/HCPCS: 36415; 80048; 80053; 81003; 82962; 85025; 85027; 85597; 85730; 86038; 86146; 86147; 86160; 86225; 86235; 87086; 87529; 96374; 96375; 96376; 99285-25; G0378; J0131

== ENCOUNTER 2024-02-20 12:11 | Emergency (ER) | payer OTHER ==
[2024-02-20 12:17] VITALS: RESP 18; TEMP 97.5; BMI 28.5
[2024-02-20] MEDS ORDERED: ACETAMINOPHEN 325 MG TABLET (FP) ONE (13:16)
[2024-02-20] MEDS: ACETAMINOPHEN 500 MG TABLET (FP) PO ONE (13:33)
[2024-02-20 13:35] VITALS: BP 179/105; PULSE 68
[2024-02-20 13:47] LABS: BASO % 0.2 % (0-2.0); HEMOGLOBIN 12.2 GM/dL (10.7-15.3); LYMPH % 13.1 % (8-40); MCH 23.5 pg (25.7-33.7); MCHC 32.9 g/dl (32.0-36.0); MEAN CELL VOLUME 71.5 fl (80-96); MEAN PLT VOLUME 9.2 fl (7.5-11.1); MONO % 3.6 % (3.8-10.2); NEUT % 83.1 % (42.8-82.8); PLATELET COUNT 144 10^3/uL (134-434); RBC 5.17 M/mm3 (3.60-5.2); RDW 17.1 % (11.6-15.6)
[2024-02-20 13:51] LABS: EPI CELLS 9 /uL (0-25.1); HYALINE CASTS 1 /uL (0-3.1); PH,URINE 6.5 (5.0-8.0); URINE APPEARANCE CLEAR; URINE BACTERIA 33 /uL (0-1359); URINE BILIRUBIN NEGATIVE (NEGATIVE); URINE COLOR YELLOW; URINE GLUCOSE (UA) 3+ (NEGATIVE); URINE KETONE NEGATIVE (NEGATIVE); URINE LEUK ESTERASE NEGATIVE (NEGATIVE); URINE NITRITE NEGATIVE (NEGATIVE); URINE PROTEIN 2+ (NEGATIVE); URINE RBC 11 /uL (0-23.9); URINE WBC 4 /uL (0-25.8)
[2024-02-20 14:11] LABS: POTASSIUM 3.8 mmol/L (3.5-5.1)
[2024-02-20 14:14] LABS: ALBUMIN 3.9 g/dl (3.4-5.0); CALCIUM 9.5 mg/dL (8.5-10.1)
[2024-02-20 14:19] LABS: BILIRUBIN,TOTAL 0.9 mg/dL (0.2-1)
[2024-02-20 14:22] LABS: CREATININE 0.7 mg/dL (0.55-1.3)
== END 2024-02-20 16:01 | disposition home or self-care (01) ==
LOC: JER 12:11
DX: R51.9 Headache, unspecified (principal); I10 Essential (primary) hypertension; E11.65 Type 2 diabetes mellitus with hyperglycemia
CPT/HCPCS: 36415; 70450-TC; 71045-TC-FY; 80053; 81003; 84484; 85025; 93005; 93010; 99285-25

== ENCOUNTER 2024-07-16 14:54 | Emergency (ER) | payer OTHER, BC ==
[2024-07-16 15:17] VITALS: BP 166/94; PULSE 88; RESP 19; TEMP 98; BMI 27.3
[2024-07-16] MEDS ORDERED: LIDOCAINE 4% PATCH TP ONE ×2 (16:58→17:01)
[2024-07-16] MEDS ORDERED: KETOROLAC TROMETHAMINE 30 MG/1 ML VIAL ONE (16:59)
[2024-07-16] MEDS ORDERED: ACETAMINOPHEN 500 MG TABLET (FP) ONE (17:00)
[2024-07-16] MEDS: LIDOCAINE 4% PATCH TP ONE (17:10)
[2024-07-16] MEDS: KETOROLAC TROMETHAMINE 30 MG/1 ML VIAL IM ONE (17:11)
[2024-07-16] MEDS: ACETAMINOPHEN 325 MG TABLET (FP) PO ONE (17:12)
[2024-07-16] MEDS ORDERED: LIDOCAINE PATCH REMOVAL MC SCH (22:00)
== END 2024-07-16 19:55 | disposition home or self-care (01) ==
LOC: JERFT 14:54
PROC: 3E0233Z Introduction of Anti-inflammatory into Muscle, Percutaneous Approach (ICD-10-PCS; principal; 2024-07-16)
DX: M54.50 Low back pain, unspecified (principal); M25.551 Pain in right hip; M54.2 Cervicalgia; M25.561 Pain in right knee; V44.6XXA Car passenger injured in collision with heavy transport vehicle or bus in traffic accident, initial encounter; Y92.410 Unspecified street and highway as the place of occurrence of the external cause
CPT/HCPCS: 72125-TC; 72131-TC; 73521-TC-FY; 73562-TC-RT-FY; 99284-25

== ENCOUNTER 2024-11-24 05:10 | Emergency (ER) | payer OTHER, BC ==
[2024-11-24 05:30] VITALS: RESP 18; BMI 28.1
[2024-11-24] MEDS: LACTATED RINGERS SOLUTION 1000 ML INFUS.BAG IV ONE (05:53)
[2024-11-24] MEDS ORDERED: FAMOTIDINE 20 MG/50 ML IVPB 20 MG/50 ML MG IVPB ONE (05:57)
[2024-11-24] MEDS ORDERED: ACETAMINOPHEN INJECTION 100 ML ONE (05:57)
[2024-11-24] MEDS ORDERED: ONDANSETRON 4 MG/2 ML VIAL ONE (05:57)
[2024-11-24] MEDS: ONDANSETRON 4 MG/2 ML VIAL IVPUSH ONE (06:05)
[2024-11-24] MEDS: FAMOTIDINE 20 MG/50 ML IVPB 20 MG/50 ML MG IVPB ONE (06:05)
[2024-11-24] MEDS: ACETAMINOPHEN 1000 MG/100 ML BAG IVPB ONE (06:05)
[2024-11-24 06:20] LABS: BASO % 0.4 % (0-2.0); EOS % 0.4 % (0-4.5); HEMATOCRIT 36.6 % (32.4-45.2); LYMPH % 37.3 % (8-40); MCH 22.7 pg (25.7-33.7); MCHC 32.7 g/dl (32.0-36.0); MEAN CELL VOLUME 69.3 fl (80-96); MEAN PLT VOLUME 9.5 fl (7.5-11.1); MONO % 13.9 % (3.8-10.2); RBC 5.29 M/mm3 (3.60-5.2); RDW 17.8 % (11.6-15.6); WHITE BLOOD COUNT 3.1 K/mm3 (4.0-10.0)
[2024-11-24 06:31] LABS: POTASSIUM 3.3 mmol/L (3.5-5.1)
[2024-11-24 06:33] LABS: ALBUMIN 3.8 g/dl (3.4-5.0); CALCIUM 8.4 mg/dL (8.5-10.1); MAGNESIUM 1.3 mg/dL (1.8-2.4)
[2024-11-24 06:35] LABS: INR 1.15 (0.83-1.09); PROTHROMBIN TIME (PATIENT) 12.6 SEC (9.7-13.0)
[2024-11-24 06:37] LABS: CREATININE 0.7 mg/dL (0.55-1.3)
[2024-11-24 06:38] LABS: ACTIVATED PTT 29.3 SECONDS (25.2-36.5)
[2024-11-24 06:38] LABS: BILIRUBIN,TOTAL 0.4 mg/dL (0.2-1); TOT PROT 8.3 g/dl (6.4-8.2)
[2024-11-24 06:49] LABS: LACTIC ACID 2.7 mmol/L (0.4-2.0)
[2024-11-24] MEDS ORDERED: MAGNESIUM SULFATE IN WATER 2 GM/50 ML IVPB IVPB ONE (07:20)
[2024-11-24] MEDS ORDERED: KCL 10 MEQ IVPB 10 MEQ/100 ML INFUS.BAG IVPB ONE (07:20)
[2024-11-24] MEDS: MAGNESIUM SULF 50% (8.12 MEQ/2 ML-1 GM VIAL) IVPB ONE (07:27)
[2024-11-24] MEDS: KCL 10 MEQ IVPB 10 MEQ/100 ML INFUS.BAG IVPB SCH (07:57)
[2024-11-24] MEDS ORDERED: KCL 10 MEQ IVPB 20 MEQ/200 ML INFUS.BAG IVPB ONE (09:14)
[2024-11-24 09:28] LABS: PLATELET COUNT 147 10^3/uL (134-434)
[2024-11-24] MEDS ORDERED: ACETAMINOPHEN 500 MG TABLET (FP) PO ONE (09:59)
[2024-11-24] MEDS ORDERED: ONDANSETRON 4 MG/2 ML VIAL IVPUSH ONE (10:00)
[2024-11-24] MEDS ORDERED: KETOROLAC TROMETHAMINE 15 MG/ML VIAL IVPUSH ONE (10:03)
[2024-11-24 10:25] VITALS: BP 125/61; PULSE 69; TEMP 97.9
== END 2024-11-24 11:00 | disposition home or self-care (01) ==
LOC: JER 05:10
PROC: 3E033GC Introduction of Other Therapeutic Substance into Peripheral Vein, Percutaneous Approach (ICD-10-PCS; principal; 2024-11-24)
PROC: 3E033NZ Introduction of Analgesics, Hypnotics, Sedatives into Peripheral Vein, Percutaneous Approach (ICD-10-PCS; 2024-11-24)
PROC: 3E033GC Introduction of Other Therapeutic Substance into Peripheral Vein, Percutaneous Approach (ICD-10-PCS; 2024-11-24)
PROC: 3E033GC Introduction of Other Therapeutic Substance into Peripheral Vein, Percutaneous Approach (ICD-10-PCS; 2024-11-24)
DX: R10.84 Generalized abdominal pain (principal); R11.2 Nausea with vomiting, unspecified; R19.7 Diarrhea, unspecified
CPT/HCPCS: 36415; 74174-TC; 80053; 83605; 83690; 83735; 84484; 85025; 85610; 85730; 86850; 86900; 86901; 93005; 93010; 96365; 96375; 99285-25; J0131

== ENCOUNTER 2025-03-19 06:53 | Emergency (ER) | payer OTHER ==
[2025-03-19 07:01] VITALS: BP 177/66; PULSE 88; RESP 18; TEMP 98.1; BMI 28.1
[2025-03-19] MEDS: HYDROXYCHLOROQUINE SO4 200 MG TABLET (FP) PO SCH (08:02)
[2025-03-19] MEDS ORDERED: predniSONE 20 MG TABLET (UD) ONE (08:03)
[2025-03-19] MEDS ORDERED: ACETAMINOPHEN 325 MG TABLET (FP) ONE (08:08)
[2025-03-19] MEDS: ACETAMINOPHEN 325 MG TABLET (FP) PO ONE (08:09)
[2025-03-19] MEDS: predniSONE 20 MG TABLET (UD) PO ONE (08:09)
[2025-03-19] MEDS: HYDROXYCHLOROQUINE SO4 200 MG TABLET (FP) PO ONE (08:36)
== END 2025-03-19 08:44 | disposition home or self-care (01) ==
LOC: JER 06:53
DX: L93.0 Discoid lupus erythematosus (principal); R63.4 Abnormal weight loss; K13.70 Unspecified lesions of oral mucosa; R63.8 Other symptoms and signs concerning food and fluid intake
CPT/HCPCS: 99283-25